=== PATIENT | female | born 1980 ===

== ENCOUNTER 2025-05-18 19:14 | Inpatient (IN) | payer MEDICARE, MEDICAID, SELFPAY ==
--- OUTSIDE RECORDS SUMMARY | 2025-05-17 14:45 | XMS_ITS | Encounter Summary ---
Author Organization [facility] Address [address] [place] [address] Care Team Providers Care Compliance Officer Name Role Phone Anisha Crowell MD Primary Care Provider [phone] Reason for Visit * Reason Comments Vomiting Encounter Details Date Type Department Care Team ([facility] st Contact Info) Description 05/17/2025 2:45 PM EST - 05/17/2025 10:01 PM EST Emergency [facility] Emergency [address] [place] [address] Luis Antonio Jacobo MD [address] [place] [address] Benny Moreau MD [address] [facility] [address] [place], [place] [id number] Nausea and vomiting, unspecified vomiting type (Primary Dx) Discharge Disposition: Home or Self Care Social History Tobacco Use Types Packs/Day Years Used Date Smoking Tobacco: Never Smokeless Tobacco: Never Comments Unknown Sex and Gender Information Value Date Recorded Sex Assigned at Female 05/12/2024 5:13 PM EST Legal Sex Female 8:19 PM EST Gender Identity Female 05/12/2024 5:13 PM EST Sexual Orientation Not on file documented as of this encounter Last Filed Vital Signs Vital Sign Reading Time Taken Comments Blood Pressure 110/74 05/17/2025 7:32 PM EST Pulse 89 05/17/2025 7:32 PM EST Temperature 36.5 C (97.7 F) 05/17/2025 7:32 PM EST Respiratory Rate 16 05/17/2025 7:32 PM EST Oxygen Saturation 97% 05/17/2025 7:32 PM EST Inhaled Oxygen Concentration - - Weight 70.3 kg (155 lb) 05/17/2025 2:10 PM EST Height 167.6 cm (5' 6 ) 05/17/2025 2:10 PM EST Body Mass Index 25.02 05/17/2025 2:10 PM EST documented in this encounter Discharge Instructions * Discharge Instructions* Benny Mroeau MD - 05/17/2025 9:29 PM EST You can take over the counter Acetaminophen (ex: Tylenol) 650 mg every 6 hours as needed for pain. Do not take more than this / Never take more than 4g (4,000mg) of Tylenol in one day; it can cause serious damage to your liver if you take too much. You been prescribed several tablets of Zofran for nausea and vomiting. Follow-up with your primary care provider next 3 to 5 days As we discussed return to the emergency department immediately if your symptoms worsen or not get better, if you experience any worsening uncontrolled pain, recurrent nausea and or vomiting, unable to eat or drink, chest pain, shortness of breath, or for any other reason Even though you have been discharged from the Emergency Department, there are several things that you should do to ensure that you receive proper care: 1. DO READ your discharge instructions as these contain important information concerning your medical care. 2. If medication has been prescribed for your condition, fill the prescription as soon as possible and follow the directions on the medication. 3. RETURN AT ONCE TO THE EMERGENCY DEPARTMENT if you have any problems or concerns. These include but are not limited to fever, worsening pain(belly, chest, head, etc...), worsening shortness of breath, uncontrollable bleeding, inability to tolerate food and water, or any condition that makes you question your well-being. Also, if your symptoms do not improve in the next 12-24 hours, return to the ER or seek medical care immediately. 4. Be sure to follow up with your regular physician or specialist as instructed at discharge as this is the best way to ensure that you receive the very best of care. If you do not have a primary care physician, please contact a physician group and make an appointment. 5. Please visit [employer] for coupons regarding your prescriptions. It is a free service for you to use and can help reduce the cost of your medication. We would like to thank you for coming today and our hope is that we served you and your family wellduring your stay * Attachments The following attachments cannot be sent through Care Everywhere. * Nausea and Vomiting (Cameroonian) documented in this encounter Medications at Time of Discharge acetaminophen (TYLENOL) 500 mg tablet Take 2 tablets (1,000 mg total) by mouth every 6 (six) hours if needed for mild pain or moderate pain. 32 tablet 05/10/2024 ondansetron ODT (ZOFRAN-ODT) 8 mg disintegrating tablet Dissolve 1 tablet (8 mg total) on top of the tongue every 8 (eight) hours if needed for nausea or vomiting. 4 tablet 05/17/2025 documented as of this encounter Ordered Prescriptions Prescription Sig Dispense Quantity Refills Last Filled Start Date End Date ondansetron ODT (ZOFRAN-ODT) 8 mg disintegrating tablet Dissolve 1 tablet (8 mg total) on top of the tongue every 8 (eight) hours if needed for nausea or vomiting. 4 tablet 05/17/2025 documented in this encounter Discharge Disposition Disposition Code Departure Means Destination Comment s Home or Self Care documented in this encounter Progress Notes * Usman Pringle RN - 05/17/2025 2:20 PM EST BG 146. Patient in waiting room screaming and stating I need pain meds , vitals stable in triage. Usman Pringle RN 05/17/25 1421 * Jodi Dowd RN - 05/17/2025 1:54 PM EST C/o vomiting and abd pain since this AM. PER EMS HX OF CVA YEARS AGO * Benny Moreau MD - 05/17/2025 1:46 PM EST HPI Chief Complaint Patient presents with Vomiting HPI Patient is a 44-year-old female presenting with recurrent nausea, nonbloody vomiting and abdominal pain that started today. Abdominal pain was described as very severe and diffuse described as cramping and sharp. Denies fever, chills, chest pain, shortness of breath, diarrhea, blood in stool, dysuria, hematuria, vaginal bleeding or discharge. No recent travel out of the country or hiking. No data recorded Patient History Medical History[1] Surgical History[2] Family History[3] Social History Tobacco Use Smoking status: Never Smokeless tobacco: Never Substance Use Topics Alcohol use: Not on file Drug use: Never Review of Systems Review of Systems Physical Exam ED Triage Vitals 05/17/25 1410 Temp Heart Rate Resp BP -- 79 20 104/73 SpO2 Temp src Heart Rate Source Patient Position 100 % -- -- Sitting BP Location FiO2 (%) Left arm -- Vitals: 05/17/25 1410 05/17/25 1626 05/17/25 1932 BP: 104/73 119/79 110/74 BP Location: Left arm Right arm;Upper Right arm Patient Position: Sitting Lying Sitting Pulse: 79 79 89 Resp: 20 18 16 Temp: 36.5 ??C (97.7 ??F) 36.5 ??C (97.7 ??F) TempSrc: Oral Oral SpO2: 100% 100% 97% Weight: 70.3 kg (155 lb) Height: 1.676 m (66 ) Physical Exam Vitals reviewed Pulse ox interpreted by me: Normal on room air - General: Adult, awake & alert, in acute distress secondary to abdominal pain, actively vomiting in triage - HEENT: grossly NC/AT, PERRLA, EOMI, OP clear without exudates or erythema, dry mucous membranes - Neck: Moving normally. No obvious deformities. No tenderness - Pulm: Good inspiratory effort. CTAB. Normal work of breathing on Room Air - CV: Regular rate, regular rhythm. No murmurs/rubs appreciated. - Chest wall: No chest wall bruising or lesions. - Abd/GI: Soft, ND. Generalized tenderness to palpation, no rebound or guarding. - Back/Flanks: No skin findings. No tenderness. - MSK: Radial and DP pulses 2+ bilaterally. No lower extremity edema. - Neuro: Alert. Grossly oriented. Normal fluent speech. Moves all extremities well. Grossly no acute focal exam findings. - Derm: Warm and dry. No rashes noted. - Psych: Calm, cooperative, appropriate Additional findings:_ ED Course & [facility] ED Course as of 05/17/252137 Sun May 17, 2025 141 [id number] glucose 146 [RT] 1745 CT Abdomen Pelvis w Contrast IMPRESSION: Findings consistent with enterocolitis. Small ascites. [RT] 1942 Patient is reevaluated resting comfortably in gurney no acute distress, abdomen is soft, nontender without rebound or guarding. Patient states abdominal he has resolved. No further vomiting herein the ER. She states that she is feeling much better. [RT] ED Course User Index [RT] Benny Moreau MD Clinical Impressions as of 05/17/252137 Nausea and vomiting, unspecified vomiting type Medical Decision Making EKG sinus rhythm 80 bpm, QTc 491 MS, normal axis, nonspecific T wave inversion in V3, similar EKG when compared to prior, no sign of acute ischemia. Labs reviewed notable for no leukocytosis, no anemia, no significant electrolyte derangements, mildelevation beta hydroxybutyrate, troponin negative, lipase negative, viral swab negative. UA not concerning for infection or blood. beta hcg negative. My preliminary interpretation of chest x-ray no consolidation, effusion, or pneumothorax. I agree with radiology interpretation. I considered a broad differential diagnosis including but not limited to bowel obstruction, bowel perforation, acute appendicitis, cholecystitis, diverticulitis, pyelonephritis, ectopic , ovarian torsion, TOA, severe electrolyte derangement, sepsis all less likely given presentation and workup today. Based on workup and presentation today is my clinical impression that patient is dehydrated with a enterocolitis not requiring antibiotics today. Patient passed a p.o. challenge prior to discharge. Patient was counseled re: their likely diagnosis and workup results today. Anticipatory guidance, supportive care, and return precautions were discussed with the patient who voiced understanding and is comfortable with the plan. Procedures Benny Moreau MD 05/17/251417 Benny Moreau MD 05/17/251949 Benny Moreau MD 05/17/252138 Benny Moreau MD 05/18/25 1124 Benny Moreau MD 05/18/25 1125 [1] Past Medical History: Diagnosis Date Stroke (CMS/HCC V24, CMS/HCC V28) [2] Past Surgical History: Procedure Laterality Date HYSTERECTOMY [3] No family history on file. Benny Moreau MD 05/18/25 1126 documented in this encounter Plan of Treatment Not on file documented as of this encounter Procedures Procedure Name Priority Date/Time Associated Diagnosis Comments URINALYSIS WITH REFLEX MICROSCOPIC AND CULTURE STAT 05/17/2025 7:43 PM EST DARBY URINE CULTURE TUBE STAT 05/17/20 7:43 PM EST DRUG ABUSE SCREEN 8A PANEL, URINE STAT 05/17/2025 7:43 PM EST URINALYSIS WITH REFLEX MICROSCOPIC AND CULTURE STAT 05/17/2025 7:[address] ABDOMEN PELVIS W CONTRAST STAT 05/17/2025 4:57 PM EST ECG 12-LEAD STAT 05/17/2025 4:22 PM EST XR CHEST 1 VIEW STAT 05/17/2025 3:57 PM EST [id number], RSV, FLU A AND B QUALITATIVE RT-PCR, INTERNAL LAB STAT 05/17/2025 3:38 PM EST TROPONIN I HIGH SENSITIVITY STAT 05/17/2025 3:26 PM EST BETA HYDROXYBUTYRATE STAT 05/17/2025 3:26 PM EST CBC WITH AUTO DIFFERENTIAL STAT 05/17/2025 3:26 PM EST ACTIVATED PARTIAL THROMBOPLASTIN TIME STAT 05/17/2025 3:26 PM EST PROTHROMBIN TIME WITH INR STAT 05/17/2025 3:26 PM EST CBC AND DIFFERENTIAL STAT 05/17/2025 3:26 PM EST HCG, SERUM, QUALITATIVE STAT 05/17/20 3:26 PM EST MAGNESIUM STAT 05/17/2025 3:26 PM EST LIPASE STAT 05/17/2025 3:26 PM EST COMPREHENSIVE METABOLIC PANEL STAT 05/17/2025 3:26 PM EST POCT GLUCOSE BLOOD Routine 05/17/2025 2: 18 PM EST documented in this encounter Results * (ABNORMAL) Drug abuse screen 8a panel, urine (05/17/2025 7:43 PM EST) Amphetamine Screen, Ur Negative Negative 05/17/2025 8:37 PM EST [facility] Comment:Certain OTC medicati ons containing ephedrine, phenylephrine, pseudoephedrine and phenylpropanolamine can cause false positive results. Barbiturate Screen, Ur Negative Negative 05/17/2025 8:37 PM [facility] Benzodiazepine Screen, Ur Negative Negative 05/17/2025 8:37 PM [facility] Cocaine Screen, Ur Negative Negative 2024 8:37 PM [facility] Opiate Screen, Ur Positive(A ) Negative 05/17/2025 8:37 PM [facility] Cannabinoid (THC) Screen, Ur Negative Negative 05/17/2025 8:37 PM [facility] Comment:Specimens from patie nts taking pantoprazole sodium (Protonix) have been shown to produce false positive results. Oxycodone Screen, Ur Negative Negative 12/2024 8:37 PM EST [facility] Fentanyl, Ur Negative Negative 05/17/2025 8:37 PM EST [facility] Urine Urine specimen obtained by clean catch procedure / Unknown Non-blood Collection / Unknown 05/17/2025 7:43 PM EST 05/17/2025 8:08 PM EST Narrative [facility] - 05/17/2025 8:37 PM EST Assay cutoffs: Amphetamines 1000 ng/mL Barbiturates 200 ng/mL Benzodiazepines 200 ng/mL Cocaine 300 ng/mL Fentanyl 1 ng/mL Opiates 300 ng/mL Oxycodone 100 ng/mL THC 50 ng/mL Semi-quantitative assay for screening purposes only. Unconfirmed screening result should not be used for non-medical purposes. *ALTERNATE METHOD CONFIRMATION DONE UPON REQUEST ONLY* us Benny Moreau MD LAB URINE ORDERABLES Final Resul t Performing Organization Address City/[facility]/ZIP Co de Phone Number [facility] [address] [place] [address], [place] [phone] * Darby urine culture tube (05/17/2025 7:43 PM EST) Pathologist [facility] Extra Tube Hold for add-ons. 05/17/2025 10:04 PM EST [facility] Comment:Auto resulted. Urine Urine specimen obtained by clean catch procedure / Unknown Non-blood Collection / Unknown 05/17/2025 7:43 PM EST 05/17/2025 8:08 PM EST us Benny Moreau MD LAB URINE ORDERABLES Final Resul t Performing Organization Address [facility]/ZIP Co de Phone Number [facility] [address] [place] [address], [place] [phone] * (ABNORMAL) Urinalysis with reflex microscopic and culture (05/17/2025 7:43 PM EST) Specific [place] Urine >1.045(H) 1.003 - 1.030 LAB URINALYSIS - AUTOMATED METHOD 05/17/2025 9:06 PM [facility] pH, Urine 7.5 5.0 - 8.0 pH LAB URINALYSIS - AUTOMATED METHOD 05/17/2025 9:06 PM [facility] Leukocytes, Urine Negative Negative LAB URINALYSIS - AUTOMATED METHOD 05/17/2025 9:06 PM [facility] Nitrite, Urine Negative Negative LAB URINALYSIS - AUTOMATED METHOD 05/17/2025 9:06 PM [facility] Protein, Urine Trace <=Trace mg/dL LAB URINALYSIS - AUTOMATED METHOD 05/17/2025 9:06 PM [facility] Glucose, Urine Negative Negative mg/dL LAB URINALYSIS - AUTOMATED METHOD 05/17/2025 9:06 PM [facility] Ketones, Urine Negative Negative mg/dL LAB URINALYSIS - AUTOMATED METHOD 05/17/2025 9:06 PM [facility] Urobilinogen , Urine 0.2 0.2 - 1.0 mg/dL LAB URINALYSIS - AUTOMATED METHOD 05/17/2025 9:06 PM [facility] Bilirubin, Urine Negative Negative LAB URINALYSIS - AUTOMATED METHOD 05/17/2025 9:06 PM [facility] Blood, Urine Negative Negative LAB URINALYSIS - AUTOMATED METHOD 05/17/2025 9:06 PM [facility] Urine Urine specimen obtained by clean catch procedure / Unknown Non-blood Collection / Unknown 05/17/2025 7:43 PM EST 05/17/2025 8:08 PM EST us Benny Moreau MD LAB URINE ORDERABLES Final Resul t [facility] [address] [place] [address], * CT Abdomen Pelvis w Contrast (05/17/2025 4:57 PM EST) Anatomical Region Laterality Modality Body Computed Tomogra phy 05/17/2025 5:28 PM EST Impressions 05/17/2025 5:28 PM EST Findings consistent with enterocolitis. Small ascites. This document has been electronically signed by: Aiden Bashir MD on 05/17/2025 17:28:14 Narrative 05/17/2025 5:28 PM EST INDICATION: abd pain CT Abdomen and Pelvis W Contrast COMPARISON: None provided FINDINGS: Normal liver. Normal spleen. Normal kidneys. Normal adrenal glands. Normal pancreas. No visible cholelithiasis. No biliary dilation. No evidence of bowel obstruction. Mild thickening of the meyer of the descending and sigmoid colon. Fluid-filled small bowel loops with mild adjacent fat stranding in the lower abdomen. Mild thickening of the meyer of several small bowel loops. No pneumatosis. Normal-appearing appendix. Unremarkable bladder. Status post hysterectomy. Small ascites. No pneumoperitoneum. No lymphadenopathy. No acute fracture. No abdominal aortic aneurysm. Procedure Note Aiden Bashir MD - 05/17/2025 INDICATION: abd pain CT Abdomen and Pelvis W Contrast COMPARISON: None provided FINDINGS: Normal liver. Normal spleen. Normal kidneys. Normal adrenal glands. Normal pancreas. No visible cholelithiasis. No biliary dilation. No evidence of bowel obstruction. Mild thickening of the meyer of the descending and sigmoid colon. Fluid-filled small bowel loops with mild adjacent fat stranding in the lower abdomen. Mild thickening of thewalls of several small bowel loops. No pneumatosis. Normal-appearing appendix. Unremarkable bladder. Status post hysterectomy. Small ascites. No pneumoperitoneum. No lymphadenopathy. No acute fracture. No abdominal aortic aneurysm. IMPRESSION: Findings consistent with enterocolitis. Small ascites. This document has been electronically signed by: Aiden Bashir MD on 05/17/2025 17:28:14 Benny Moreau MD IM CT PROCEDURES Final Result * 12-Lead ECG (05/17/2025 4:22 PM EST) Ventricular Rate ECG 80 BPM GEMUSE Atrial Rate 80 BPM GEMUSE P-R Interval 168 ms GEMUSE QRS Duration 78 ms GEMUSE Q-T Interval 426 ms GEMUSE QTc 491 ms GEMUSE P Wave Applegate 84 degrees GEMUSE R Applegate 51 degrees GEMUSE T Applegate 55 degrees GEMUSE ECG Interpretation Normal sinus rhythm Nonspecific T wave abnormality Prolonged QT Abnormal ECG When compared with ECG of 26-NOV-2017 14:39, No significant change was found Confirmed by Guanaco ALFARO YUFENG ([id number]) on 05/17/2025 5:59:00 PM GEMUSE 05/17/2025 4:22 PM EST 05/17/2025 5:59 PM EST Benny Moreau MD ECG ORDERABLES Final Result GEMUSE * XR Chest 1 View (05/17/2025 3:57 PM EST) Anatomical Region Laterality Modality Body Radiographic Jennifer ging 05/17/2025 4:17 PM EST Impressions 05/17/2025 4:18 PM EST FINDINGS/IMPRESSION: Lungs are clear. No pleural effusion or pneumothorax. Cardiac silhouette and bones are normal. -------- FINAL REPORT -------- Dictated By: RAJAN WITT Dictated Date: 05/17/2025 16:17 ET Assigned Physician: RAJAN WITT Reviewed and Electronically Signed By: RAJAN WITT Signed Date: 05/17/2025 16:18 ET Workstation ID: [id number] Transcribed By: Self Edit Transcribed Date: 05/17/2025 16:17 ET Narrative 05/17/2025 4:18 PM EST XR CHEST 1 VIEW INDICATION: Nausea/vomiting TECHNIQUE: XR CHEST 1 VIEW COMPARISON: No priors available. Procedure Note Rajan Witt MD - 05/17/2025 XR CHEST 1 VIEW INDICATION: Nausea/vomiting TECHNIQUE: XR CHEST 1 VIEW COMPARISON: No priors available. IMPRESSION: FINDINGS/IMPRESSION: Lungs are clear. No pleural effusion orpneumothorax. Cardiac silhouette and bones are normal. -------- FINAL REPORT -------- Dictated By: RAJAN WITT Dictated Date: 05/17/2025 16:17 ET Assigned Physician: RAJAN WITT Reviewed and Electronically Signed By: RAJAN WITT Signed Date: 05/17/2025 16:18 ET Workstation ID: [id number] Transcribed By: Self Edit Transcribed Date: 05/17/2025 16:17 ET us Benny Moreau MD IMG XR PROCEDURES Final Result * [id number], RSV, Influenza A and B qualitative RT-PCR (05/17/2025 3:38 PM EST) Pathologist [facility] Influenza A PCR Not Detected Not Detected LAB MICROBIOLOGY METHOD 05/17/2025 4:28 PM EST [facility] Influenza B PCR Not Detected Not Detected LAB MICROBIOLOGY METHOD 05/17/2025 4:28 PM EST [facility] RSV PCR Not Detected Not Detected LAB MICROBIOLOGY METHOD 05/17/2025 4:28 PM EST [facility] SARS COV-2 Not Detected Not Detected LAB MICROBIOLOGY METHOD 05/17/2025 4:28 PM EST [facility] Swab Nasopharyngeal structure / Unknown Non-blood Collection / Unknown 05/17/2025 3:38 PM EST 05/17/2025 3:41 PM EST us Benny Moreau MD LAB MICROBIOLOGY - GENERAL ORDER MAYRA Final Result [facility] [address] [place] [address], * (ABNORMAL) Beta hydroxybutyrate (05/17/2025 3:26 PM EST) Pathologist [facility] Beta-Hydroxybu tyrate 4.2(H) 0.2 - 2.8 mg/dL 05/17/2025 5:07 PM EST [facility] Blood Venous blood specimen / Unknown Venipuncture / Unknown 05/17/2025 3:26 PM EST 05/17/2025 3:41 PM EST us Benny Moreau MD LAB BLOOD ORDERABLES Final Resul t [facility] [address] [place] [address], [place] [phone] * (ABNORMAL) CBC auto differential (05/17/2025 3:26 PM EST) WBC 7.7 4.8 - 10.8 K/mcL LAB HEMETOLOGY METHOD 05/17/2025 3:51 PM EST [facility] RBC 4.10 3.80 - 4.80 M/mcL LAB HEMETOLOGY METHOD 05/17/2025 3:51 PM [facility] Hemoglobin 12.7 11.5 - 16.0 g/dL LAB HEMETOLOGY METHOD 05/17/2025 3:51 PM EST [facility] Hematocrit 37.8 35.0 - 47.0 % LAB HEMETOLOGY METHOD 05/17/2025 3:51 PM [facility] MCV 91.7 79.0 - 98.0 FL LAB HEMETOLOGY METHOD 05/17/2025 3:51 PM [facility] MCH 30.8 27.0 - 32.0 pcg LAB HEMETOLOGY METHOD 05/17/2025 3:51 PM [facility] MCHC 33.6 32.0 - 37.0 g/dL LAB HEMETOLOGY METHOD 05/17/2025 3:51 PM [facility] RDW 11.8 11.0 - 15.0 % LAB HEMETOLOGY METHOD 05/17/2025 3:51 PM [facility] Platelets 251 130 - 400 K/mcL LAB HEMETOLOGY METHOD 05/17/2025 3:51 PM [facility] MPV 11.7(H) 7.0 - 11.0 FL LAB HEMETOLOGY METHOD 05/17/2025 3:51 PM [facility] NRBC 0.0 <1.0 % LAB HEMETOLOGY METHOD 05/17/2025 3:51 PM [facility] NRBC Absolute 0.00 <0.10 K/mcL LAB HEMETOLOGY METHOD 05/17/2025 3:51 PM [facility] Neutrophils Relative 79.5 % LAB HEMETOLOGY METHOD 05/17/2025 3:51 PM [facility] Lymphocytes Relative 17.4 % LAB HEMETOLOGY METHOD 05/17/2025 3:51 PM [facility] Monocytes Relative 2.6 % LAB HEMETOLOGY METHOD 05/17/2025 3:51 PM [facility] Eosinophils Relative 0.1 % LAB HEMETOLOGY METHOD 05/17/2025 3:51 PM [facility] Basophils Relative 0.1 % LAB HEMETOLOGY METHOD 05/17/2025 3:51 PM [facility] Immature Granulocytes Relative 0.3 % LAB HEMETOLOGY METHOD 05/17/2025 3:51 PM [facility] Neutrophils Absolute 6.14 1.50 - 7.00 K/mcL LAB HEMETOLOGY METHOD 05/17/2025 3:51 PM [facility] Lymphocytes Absolute 1.34 1.00 - 5.00 K/mcL LAB HEMETOLOGY METHOD 05/17/2025 3:51 PM [facility] Monocytes Absolute 0.20 0.20 - 1.00 K/mcL LAB HEMETOLOGY METHOD 05/17/2025 3:51 PM [facility] Eosinophils Absolute 0.01 0.00 - 0.50 K/mcL LAB HEMETOLOGY METHOD 05/17/2025 3:51 PM [facility] Basophils Absolute 0.01 0.00 - 0.20 K/mcL LAB HEMETOLOGY METHOD 05/17/2025 3:51 PM EST [facility] Immature Granulocytes Absolute 0.02 0.00 - 0.03 K/[facility] LAB HEMETOLOGY METHOD 05/17/2025 3:51 PM EST [facility] Blood Venous blood specimen / Unknown Venipuncture / Unknown 05/17/2025 3:26 PM EST 05/17/2025 3:41 PM EST Benny Moreau MD LAB BLOOD ORDERABLES Final Resul t [facility] [address] [place] [address], [place] [phone] * (ABNORMAL) APTT (05/17/2025 3:26 PM EST) aPTT 23.1(L) 24.1 - 39.3 sec LAB COAGULATION METHOD 05/17/2025 4:17 PM EST [facility] Blood Venous blood specimen / Unknown Venipuncture / Unknown 05/17/2025 3:26 PM EST 05/17/2025 3:41 PM EST Benny Moreau MD LAB BLOOD ORDERABLES Final Resul t Performing Organization Address [facility]/State/ZIP Co de Phone Number [facility] [address] [place] [address], [place] [phone] * Protime-INR (05/17/2025 3:26 PM EST) Protime 11.6 10.6 - 13.9 sec LAB COAGULATION METHOD 05/17/2025 4:17 PM EST [facility] INR 0.9 LAB COAGULATION METHOD 05/17/2025 4:17 PM EST [facility] Blood Venous blood specimen / Unknown Venipuncture / Unknown 05/17/2025 3:26 PM EST 05/17/2025 3:41 PM EST us Benny Moreau MD LAB BLOOD ORDERABLES Final Resul t Performing Organization Address City/[facility]/ZIP Co de Phone Number [facility] [address] [place] [address], [place] [phone] * Troponin I High Sensitivity (05/17/2025 3:26 PM EST) [facility] High Sensitivity Troponin I <3 <=34 ng/L 05/17/2025 4:12 PM EST [facility] Blood Venous blood specimen / Unknown Venipuncture / Unknown 05/17/2025 3:26 PM EST 05/17/2025 3:41 PM EST us Benny Moreau MD LAB BLOOD ORDERABLES Final Resul t Performing Organization Address [facility] Co de Phone Number [facility] [address] [place] [address], [place] [phone] * hCG Qualitative (05/17/2025 3:26 PM EST) [facility] hCG Qual Negative Negative 05/17/2025 3:59 PM EST [facility] Blood Venous blood specimen / Unknown Venipuncture / Unknown 05/17/2025 3:26 PM EST 05/17/2025 3:41 PM EST us Benny Moreau MD LAB BLOOD ORDERABLES Final Resul t Performing Organization Address City/[facility]/ZIP Co de Phone Number [facility] [address] [place] [address], [place] [phone] * Lipase (05/17/2025 3:26 PM EST) [facility] Lipase 25 12 - 53 unit/L 05/17/2025 4:13 PM EST [facility] Blood Venous blood specimen / Unknown Venipuncture / Unknown 05/17/2025 3:26 PM EST 05/17/2025 3:41 PM EST us Benny Moreau MD LAB BLOOD ORDERABLES Final Resul t Performing Organization Address City/[facility]/ZIP Co de Phone Number [facility] [address] [place] [address], [place] [phone] * Magnesium (05/17/2025 3:26 PM EST) Pathologist [facility] Magnesium 1.9 1.9 - 2.6 mg/dL 05/17/2025 4:13 PM [facility] Blood Venous blood specimen / Unknown Venipuncture / Unknown 05/17/2025 3:26 PM EST 05/17/2025 3:41 PM EST us Benny Moreau MD LAB BLOOD ORDERABLES Final Resul t Performing Organization Address [facility]/ZIP Co de Phone Number [facility] [address] [place] [address], [place] [phone] * (ABNORMAL) Comprehensive Metabolic Panel (CMP) (05/17/2025 3:26 PM EST) [facility] Sodium 137 133 - 145 mmol/L 05/17/2025 4:13 PM [facility] Potassium 4.0 3.5 - 5.5 mmol/L 05/17/2025 4:13 PM [facility] Chloride 104 96 - 110 mmol/L 05/17/2025 4:13 PM [facility] CO2 22 21 - 32 mmol/L 05/17/2025 4:13 PM [facility] Anion Gap 11 3 - 11 05/17/2025 4:13 PM [facility] Glucose 150(H) 70 - 100 mg/dL 05/17/2025 4:13 PM [facility] BUN 12 5 - 25 mg/dL 05/17/2025 4:13 PM [facility] Creatinine 0.67 0.50 - 1.10 mg/dL 05/17/2025 4:13 PM [facility] eGFR 112 >=60 mL/min/1. 73m2 05/17/2025 4:13 PM [facility] Comment:Calculation based on the Chronic Kidney Disease Epidemiology Collaboration (CKD-EPI) equation refit without adjustment for race. BUN/Creatinine Ratio 17.9 05/17/2025 4:13 PM [facility] Calcium 9.5 8.5 - 10.5 mg/dL 05/17/2025 4:13 PM [facility] AST (SGOT) 18 10 - 42 unit/L 05/17/2025 4:13 PM [facility] ALT (SGPT) 15 10 - 60 unit/L 05/17/2025 4:13 PM [facility] Alkaline Phosphatase 58 42 - 121 unit/L 05/17/2025 4:13 PM [facility] Total Protein 6.8 6.0 - 8.0 g/dL 05/17/2025 4:13 PM [facility] Albumin 4.4 3.2 - 5.0 g/dL 05/17/2025 4:13 PM [facility] Total Bilirubin 0.5 0.0 - 1.4 mg/dL 05/17/2025 4:13 PM [facility] Blood Venous blood specimen / Unknown Venipuncture / Unknown 05/17/2025 3:26 PM EST 05/17/2025 3:41 PM EST us Benny Moreau MD LAB BLOOD ORDERABLES Final Resul t [facility] [address] [place] [address], * (ABNORMAL) POCT Glucose, blood (05/17/2025 2:18 PM EST) Glucose POCT 146(H) 70 - 100 mg/dL 05/17/2025 2:19 PM EST [facility] Blood Capillary blood specimen / Unknown 05/17/2025 2:18 PM EST 05/17/2025 2:20 PM EST us Benny Moreau MD LAB POINT OF CARE TE ST DOCKED DEVICE UNSOLICITED RESULTS Final Result [facility] ([facility]) [facility] [address] [place] [address], [place] [phone] documented in this encounter Visit Diagnoses Diagnosis Nausea and vomiting, unspecified vomiting type- Primary documented in this encounter Administered Medications Inactive Administered Medications - up to 3 most recent administrations Medication Order MAR Action Action Date Dose Rate Site famotidine (PF) (PEPCID) injection 20 mg 20 mg, intravenous, Administer over 2 Minutes, Once, On 05/17/25 at 1416, For 1 dose Given 05/17/2025 3:13 PM EST 20 mg ibuprofen (ADVIL,MOTRIN) tablet 600 mg 600 mg, oral, Once, On 05/17/25 at 2041, For 1 dose, Administer with food or milk to decrease GI upset Given 05/17/2025 9:39 PM EST 600 mg iopamidoL (ISOVUE-370) 370 mg iodine /mL (76 %) injection 90 mL 90 mL, intravenous, Once in imaging, Starting on 05/17/25 at 1652, For 1 dose Given 05/17/2025 4:52 PM EST 90 mL lactated Ringer's bolus 1,000 mL 1,000 mL, intravenous, at 1,000 mL/hr, Administer over 1 Hours, Once, On 05/17/25 at 1416, For 1 dose New Bag 05/17/2025 3:13 PM EST 1,000 mL 100 0 mL/hr morphine injection 4 mg 4 mg, intravenous, Once, On 05/17/25 at 1430, For 1 dose Given 05/17/2025 3:13 PM EST 4 mg morphine injection 4 mg 4 mg, intravenous, Once, On 05/17/25 at 1629, For 1 dose Given 05/17/2025 4:41 PM EST 4 mg ondansetron (PF) (ZOFRAN) injection 4 mg 4 mg, intravenous, Once, On 05/17/25 at 1416, For 1 dose Given 05/17/2025 3:13 PM EST 4 mg sodium chloride 0.9 % flush 10 mL 10 mL, intravenous, Once, On 05/17/25 at 1653, For 1 dose Given 05/17/2025 4:52 PM EST 10 mL documented in this encounter Active and Recently Administered Medications Times are shown in EST. Scheduled Medication Order 05/15/2025 05/16/2025 05/17/2025 famotidine (PF) (PEPCID) injection 20 mg (COMPLETED) 20 mg, intravenous, Administer over 2 Minutes, Once, On 05/17/25 at 1416, For 1 dose 151 (Given - Provid er: Rosie Escobar RN) ibuprofen (ADVIL,MOTRIN) tablet 600 mg (COMPLETED) 600 mg, oral, Once, On 05/17/25 at 2041, For 1 dose, Administer with food or milk to decrease GI upset 2138 (Given - Provid er: Goldie Hong RN) iopamidoL (ISOVUE-370) 370 mg iodine /mL (76 %) injection 90 mL (COMPLETED) 90 mL, intravenous, Once in imaging, Starting on 05/17/25 at 1652, For 1 dose 1651 (Given - Provid er: Rachael Watkins) lactated Ringer's bolus 1,000 mL (COMPLETED) 1,000 mL, intravenous, at 1,000 mL/hr, Administer over 1 Hours, Once, On 05/17/25 at 1416, For 1 dose 151 (New Bag - Prov ider: Rosie Escobar RN)1651 (Stopped - Provider: Rosie Escobar RN) morphine injection 4 mg (COMPLETED) 4 mg, intravenous, Once, On 05/17/25 at 1430, For 1 dose 151 (Given - Provid er: Rosie Escobar RN) morphine injection 4 mg (COMPLETED) 4 mg, intravenous, Once, On 05/17/25 at 1629, For 1 dose 1641 (Given - Provid er: Rosie Escobar RN) ondansetron (PF) (ZOFRAN) injection 4 mg (COMPLETED) 4 mg, intravenous, Once, On 05/17/25 at 1416, For 1 dose 1513 (Given - Provid er: Rosie Escobar RN) sodium chloride 0.9 % flush 10 mL (COMPLETED) 10 mL, intravenous, Once, On 05/17/25 at 1653, For 1 dose 1652 (Given - Provid er: Rachael Watkins) documented in this encounter Additional Health Concerns Infection Onset Date Last Indicated Resolved Time Respiratory Rule-Out 05/17/2025 05/17/2025 025 4:28 PM EST COVID-19 Rule-Out 05/17/2025 05/17/2025 05/17/2025 4:28 PM EST documented as of this encounter Care Teams Compliance Officer Relationship Specialty Start Date End Date Anisha Crowell MD [address] [address] PCP - General Internal Medicine 03/01/25 documented as of this encounter
--- NOTE | ~2025-05-18 | CT_ITS ---
CLINICAL HISTORY: RLQ Tenderness; Pos Rebound; Pos Rovsings CT abdomen and pelvis with contrast Comparison: None provided Findings: Minimal atelectasis at the lung bases. Dependent density in the gallbladder is likely vicarious excretion from previous administration. No gallbladder wall thickening or bile duct dilatation. Abdominal solid organs unremarkable. No urolithiasis. Small amount of abdominopelvic ascites. No pneumoperitoneum. Mesenteric vessels are patent. The mid appendix is slightly thick-walled and up to 7 mm in diameter. The proximal and distal appendix appear unremarkable. Uterus absent. Ovaries within normal limits. No acute fracture. IMPRESSION: Although the majority of the appendix appears normal, the midportion is thick-walled in large diameter up to 7 mm. Combined with a small amount of ascites ( more than expected for physiologic), the possibility of early acute appendicitis should be considered. This document has been electronically signed by: Luz Blanco MD on 05/18/2025 21:58:27
[2025-05-18 19:15] VITALS: BP 127/79; PULSE 88; RESP 20; TEMP 36.6; O2SAT 98; BMI 23.5
--- NOTE | 2025-05-18 19:20 | ED_ITS ---
HPI - General Adult General Chief complaint: Abdominal Pain Stated complaint: Abdominal pain Time Seen by Provider: 05/18/25 20:04 Source: patient and family Mode of arrival: ambulatory Limitations: no limitations History of Present Illness ED Provider: Darvin LEWIS HPI narrative: The patient is a 44-year old female who presents with 2 days of abdominal pain and recurrent vomiting. Symptoms began yesterday at which time she was evaluated at [facility], where a CT abdomen/pelvis with IV contrast reportedly showed no acute surgical pathology. She was diagnosed with presumed viral gastroenteritis and discharged home with Zofran. She took Zofran at approximately 1300 today, which initially controlled her vomiting; however, emesis recurred this evening. She reports diarrhea yesterday morning that has resolved and denies hematemesis, hematochezia, or melena. Pain is described as a shooting/stabbing sensation localized to the periumbilical region without radiation to the chest or back. She denies fevers. She reports that her abdominal pain worsened with bumps while driving to the hospital. Past surgical history is notable for hysterectomy; she denies any other abdominal surgeries. Related Data Home Medications ?Medication ?Instructions ?Recorded ?Confirmed aspirin 81 mg tablet 81 mg PO DAILY 05/19/2503/05 fluticasone propionate 50 1 spray intranasal DAILY PRN Nasal 05/19/25 05/19/25 mcg/actuation nasal Congestion spray,suspension multivitamin 1 tab PO DAILY 05/19/2503/05 ondansetron 8 mg disintegrating 8 mg PO Q6H PRN Nausea And Vomiting 05/19/25 05/19/25 tablet propranolol 120 mg capsule,24 240 mg PO BEDTIME 05/19/25 hr,extended release rizatriptan 5 mg tablet 5 mg PO DAILY PRN Migraine H eadache 05/19/25 05/19/25 valacyclovir 500 mg tablet 500 mg PO DAILY 05/19/25 Previous Rx's ?Medication ?Instructions ?Recorded docusate sodium 100 mg capsule 100 mg PO BID PRN const ipation #30 05/19/25 (Colace) caps oxycodone 5 mg tablet 5 mg PO Q4H PRN pain (scale score 05/19/25 7-10) #26 tabs Allergies Allergy/AdvReac Type Severity Reaction Status Date / Time No Known Allergies Allergy Verified 05/18/25 19:18 Review of Systems 2 Review of Systems: Yes all other systems are reviewed and are negative PMFSH Past Medical History Medical History Stress-induced epilepsy Migraines CVA (cerebral vascular accident) Surgical History H/O: hysterectomy Social History Social History Household Members: Children Housing: House Do you presently have visiting nurse or other home services: No Patient Tobacco Use Status: Never used Tobacco Second Hand Smoke Exposure: No service: No Physical Exam ED Vital Signs: Vital Signs - 24 hr 05/18/25 19:15 05/18/25 19:46 05/18/25 22:05 Temperature 97.8 F 98.8 F Pulse Rate 88 62 86 Respiratory Rate 20 14 16 Blood Pressure 127/79 113/68 93/56 L Pulse Oximetry 98 99 99 Oxygen Delivery Method Room Air Room Air Room Air BMI result Body Mass Index 23.5 CONSTITUTIONAL: The patient appears uncomfortable but otherwise non-toxic, well nourished and in no acute distress. Vital signs as documented. HEAD: Atraumatic, normocephalic. EYES: EOMs grossly intact, pupils equal, conjunctiva clear, no exudate. ENT: Nares patent, no discharge. Airway patent, no audible stridor, visible mucosa is pink and moist without noted lesions. NECK: Trachea is midline, no obvious masses or gross abnormalities. CHEST: Symmetric movement, normal appearance. LUNGS: LS present and CTAB, no w/r/r. Non-labored work of breathing. CARDIAC: Regular Rhythm, S1/S2 appreciated, no murmurs, rubs or gallops. ABDOMEN: Abdomen soft x4 quadrants, tenderness to palpation of the right lower quadrant, positive rebound, positive Rovsing's, no palpable masses or organomegaly. : Deferred. EXTREMITIES: Normal tone, moves all extremities spontaneously without reported pain. No obvious acute injury or deformity noted. NEURO: Alert and oriented x3, CN II-XII appear grossly intact. Cerebellar Functioning grossly intact. No obvious sensory or motor deficits. Speech clear and appropriate. PSYCH: normal affect, appropriate eye contact, fluid speech, with appropriate response to questioning. No reported suicidality or homicidality. SKIN: Warm, dry, color appropriate, normal turgor. No rashes noted. Course Course Course Narrative: RME: 44-year-old female presents to the ED for abdomial pain and than having siezure. patient has umbilical lower abdominal pain. Patient has seizures are brought on by stress. Patient is not on any seizure medication. Labs ordered. Patient is brought to bed 6 Medications Administered Discontinued Medications Generic Name Dose Route Start Last Admin Trade Name Freq PRN Reason Stop Dose Admin Diphenhydramine HCl 25 mg 05/18/25 20:14 05/18/25 21:01 Diphenhydramine Hcl 50 Mg/Ml Vial IVPUSH 05/18/25 20:15 25 mg ONCE ONE Administration Docusate Sodium 100 mg 05/19/25 21:00 05/20/25 08:19 Docusate Sodium 100 Mg Capsule PO 100 mg BID DAVID Administration Hydromorphone HCl 0.5 mg 05/18/25 22:37 05/19/25 13:36 Hydromorphone Hcl 0.5 Mg/0.5 Ml Syringe IVPUSH 0.5 mg Q3H PRN Administration Pain, Severe (Pain Scale 7-10) Protocol Sodium Chloride 1,000 mls @ 999 mls/hr 05/18/25 20:30 05/18/25 22:02 Ns IV 05/18/25 21:30 Infused .Q1H1M DAVID Infusion Ceftriaxone Sodium 1 gm/ 50 mls @ 100 mls/hr 05/18/25 22:16 05/18/25 23:08 Sodium Chloride IV 05/18/25 22:45 Infused ONCE ONE Infusion Sodium Chloride 1,000 mls @ 999 mls/hr 05/18/25 22:30 05/18/25 23:45 Ns IV 05/18/25 23:30 Infused .Q1H1M DAVID Infusion Acetaminophen 1,000 mg in 100 mls @ 400 mls/hr 05/18/25 22:37 05/19/25 15:38 Ofirmev IV Infused Q6H PRN Infusion Pain, Mild (Pain Scale 1-3) Dextrose/Lactated Ringer's 1,000 mls @ 125 mls/hr 05/18/25 22:45 05/20/25 08:46 D5lr IVCONT Infused .Q8H DAVID Infusion Metronidazole 500 mg in 100 mls @ 100 mls/hr 05/18/25 23:00 05/19/25 16:14 Flagyl IV Not Given Q8H DAVID Ceftriaxone Sodium 1 gm/ 50 mls @ 100 mls/hr 05/19/25 10:00 05/19/25 11:30 Sodium Chloride IV Infused Q12H DAVID Infusion Influenza Virus Vaccine 0.5 ml 05/20/25 10:00 05/20/25 08:19 Flu Vacc [id number](6mo Up)/Pf 0.5 Ml Syringe IM 05/20/25 10:01 0.5 ml .ONCE ONE Administration Iohexol 85 ml 05/18/25 21:15 05/18/25 21:18 Iohexol 350 Mg/Ml 100 Ml Infus..Btl IV 05/18/25 21:16 85 ml ONCE ONE Administration Melatonin 6 mg 05/18/25 22:37 05/19/25 21:13 Melatonin 3 Mg Tablet PO 6 mg BEDTIME PRN Administration Insomnia Metoclopramide HCl 10 mg 05/18/25 20:14 05/18/25 21:01 Metoclopramide Hcl 10 Mg/2 Ml Vial IVPUSH 05/18/25 20:15 10 mg ONCE ONE Administration Morphine Sulfate 4 mg 05/18/25 20:14 05/18/25 21:02 Morphine Sulfate 4 Mg/Ml Cartridge IVPUSH 05/18/25 20:15 4 mg ONCE ONE Administration Protocol Ondansetron HCl 4 mg 05/18/25 22:37 05/19/25 19:04 Ondansetron Hcl 4 Mg/2 Ml Vial IVPUSH 4 mg QID PRN Administration Nausea Propranolol HCl 240 mg 05/19/25 21:00 05/19/25 21:13 Propranolol Hcl La 80 Mg Cap.Sa.24h PO 240 mg BEDTIME DAVID Administration Protocol Sodium Chloride 3 ml 05/19/25 00:00 05/20/25 08:46 0.9 % Sodium Chloride Flush 3 Ml Syringe IVFLUSH Not Given QSHIFT [facility] Valacyclovir HCl 500 mg 05/20/25 09:00 05/20/25 08:46 Valacyclovir Hcl 500 Mg Tablet PO Not Given DAILY [facility] Medical Decision Making Medical Decision Making MDM Narrative: 8:39 PM 05/18/2025 (Tim LEWIS): The patient is a 44-year old female who presents with 2 days of abdominal pain and recurrent vomiting. Symptoms began yesterday at which time she was evaluated at [facility], where a CT abdomen/pelvis with IV contrast reportedly showed no acute surgical pathology. She was diagnosed with presumed viral gastroenteritis and discharged home with Zofran. She took Zofran at approximately 1300 today, which initially controlled her vomiting; however, emesis recurred this evening. She reports diarrhea yesterday morning that has resolved and denies hematemesis, hematochezia, or melena. Pain is described as a shooting/stabbing sensation localized to the periumbilical region without radiation to the chest or back. She denies fevers. She reports that her abdominal pain worsened with bumps while driving to the hospital. Past surgical history is notable for hysterectomy; she denies any other abdominal surgeries. On exam the patient shows evidence of discomfort without acute distress, abdominal exam reveals right lower quadrant tenderness with positive rebound and positive Rovsing's, otherwise unremarkable. The patient is not actively vomiting in the ED. Triage note reports family noted patient was suffering from seizure-like activity, reportedly has nonepileptic seizures with stress, no seizure activity witnessed during interview or exam. Patient is alert and oriented, no evidence of postictal., no urinary incontinence or tongue biting. Patient's laboratory evaluation demonstrates no leukocytosis, significant anemia, electrolyte abnormality, or KELLI. The patient's LFTs are unremarkable, lipase is negative, urine hCG negative, urinalysis negative for infection. Differential includes appendicitis, SBO, perforated viscus, gastroenteritis. Due to the patient's presentation with positive Rovsing's, rebound, and right lower quadrant tenderness with associated peritoneal signs while driving to the hospital, and vomiting, despite recent workup at [facility], we will obtain repeat CT imaging to evaluate for developing appendicitis. Patient will be treated with IV fluid hydration, morphine, and Reglan with Benadryl for nausea control. Records from [facility] (labs and imaging) have been requested for comparison. 10:16 PM 05/18/2025 (Tim LEWIS): The patient's CT has resulted and shows likely early acute appendicitis with significant inflammation of the midportion of the appendix and periappendiceal fluid without free air or other evidence of perforation. Patient will be treated with Rocephin and Flagyl, and we will contact Surgical team for admission. Admission/Observation Consideration of admission/observation: Escalation of care including admission/observation considered Lab Data MDM Lab Attestation statement: I reviewed the patient's lab results. 05/18/25 19:34 05/18/25 19:34 Labs: Lab Results 05/18/25 05/18/25 05/18/25 Range/Units 19:31 19:34 22:29 WBC 7.1 (4.8-10.8) X10*3/uL RBC 3.99 L (4.20-5.50) X10*6/uL Hgb 12.5 (12.0-16.0) g/dl Hct 37.0 (37.0-47.0) % MCV 92.7 (80.0-98.0) fL MCH 31.3 (27.0-33.0) pg MCHC 33.8 (31.0-35.0) g/dl RDW 12.0 (11.0-16.0) % Plt Count 210 (160-400) X10*3/uL MPV 11.0 (9.4-12.3) fL Immature Gran % (Auto) 0.4 (0.0-0.4) % Neut % (Auto) 76.4 H (45-73) % Lymph % (Auto) 16.2 L (20-40) % [place] % (Auto) 6.9 (2-11) % Eos % (Auto) 0.0 (0-4) % Baso % (Auto) 0.1 (0-2) % Lymph # (Auto) 1.2 (1.2-4.9) X10*3/uL [place] # (Auto) 0.5 (0.1-1.2) X10*3/uL Eos # (Auto) 0.0 (0.0-0.4) X10*3/uL Baso # (Auto) 0.0 (0.0-0.2) X10*3/uL Abs Immat Gran (auto) 0.03 (0.00-0.03) X10*3/uL Absolute Neuts (auto) 5.4 (2.0-8.3) x10*3/uL Absolute Nucleated RBC 0.000 (0.0-0.012) X10*3/uL Nucleated RBC % (auto) 0.0 (0.0-0.2) /100WBC PT 13.2 (11.2-13.5) SEC INR 1.1 (0.9-1.1) APTT 24.1 L (26.7-34.1) SEC Sodium 141 (135-145) mmol/L Potassium 3.8 (3.3-5.1) mmol/L Chloride 104 (96-108) mmol/L Carbon Dioxide 27 (22-29) mmol/L Anion Gap 14 (12-20) BUN 9 (9-16) mg/dL Creatinine 0.73 (0.5-1.4) mg/dL Estim Creat Clear Calc 97.6 Estimated GFR > 60 Random Glucose 113 (60-115) mg/dL Lactic Acid 1.0 (0.5-2.0) mmol/L Calcium 9.9 (8.4-10.2) mg/dL Magnesium 1.9 (1.6-2.6) mg/dL Total Bilirubin 0.5 (0.0-1.0) mg/dL AST 22 (5-31) U/L ALT 16 (0-31) U/L Alkaline Phosphatase 50 (39-117) U/L Total Protein 7.1 (6.5-8.0) g/dL Albumin 4.4 (3.5-5.0) g/dL Lipase 15 (8-78) U/L Beta HCG, Quant < 2 mIU/mL Urine Color Dark Yellow Urine Appearance Cloudy Urine pH 5.5 (5.0-9.0) Ur Specific [place] 1.020 (1.005-1.025) Urine Protein Negative (Neg-Trace) mg/dL Urine Glucose (UA) Negative (Negative) mg/dL Urine Ketones Negative (Negative) mg/dL Urine Blood Negative (Negative) Urine Nitrite Negative (Negative) Ur Leukocyte Esterase Negative (Negative) Urine Test NEGATIVE (NEGATIVE) Urine Opiates Screen Not Detected (Not Detect) Ur Buprenorphine Scrn Not Detected (Not Detect) ng/mL Ur Oxycodone Screen Not Detected (Not Detect) ng/mL Urine Methadone Screen Not Detected (Not Detect) ng/mL Urine Fentanyl Screen Not Detected (Not Detect) Ur Barbiturates Screen Not Detected (Not Detect) Ur Phencyclidine Scrn Not Detected (Not Detect) Ur Amphetamines Screen Not Detected (Not Detect) U Benzodiazepines Scrn Not Detected (Not Detect) Urine Cocaine Screen Not Detected (Not Detect) U Marijuana (THC) Screen Not Detected (Not Detect) Ethyl Alcohol < 10 mg/dL Radiology Impression Discussion of test interpretation with radiology: I have reviewed the radiologist's reading. Radiologist Impression: CT abdomen and pelvis with contrast Comparison: None provided Findings: Minimal atelectasis at the lung bases. Dependent density in the gallbladder is likely vicarious excretion from previous administration. No gallbladder wall thickening or bile duct dilatation. Abdominal solid organs unremarkable. No urolithiasis. Small amount of abdominopelvic ascites. No pneumoperitoneum. Mesenteric vessels are patent. The mid appendix is slightly thick-walled and up to 7 mm in diameter. The proximal and distal appendix appear unremarkable. Uterus absent. Ovaries within normal limits. No acute fracture. IMPRESSION: Although the majority of the appendix appears normal, the midportion is thick-walled in large diameter up to 7 mm. Combined with a small amount of ascites ( more than expected for physiologic), the possibility of early acute appendicitis should be considered. This document has been electronically signed by: Luz Blanco MD on 05/18/2025 21:58:27 External Record Review External record reviewed: Outpatient record and Outside ED record ([facility] ED records requested) Prescription Management I considered prescription management with: Pain Medication and Antibiotic Discharge Plan Discharge Clinical Impression: Acute appendicitis Qualifiers: Acute appendicitis type: with localized peritonitis Appendicitis gangrene presence: without gangrene Appendicitis perforation presence: without perforation Appendicitis abscess presence: without abscess Qualified Code(s): K 35.30 - Acute appendicitis with localized peritonitis, without perforation or gangrene Patient Disposition: Admitted As Inpatient Discharge Date/Time: 05/19/25 12:05
[2025-05-18 19:40] LABS: MANUAL DIFF FLAG NO
[2025-05-18 19:41] LABS: Hematocrit 37.0 % (37.0-47.0); Hemoglobin 12.5 g/dl (12.0-16.0); Imm Gran Abs Auto 0.03 X10*3/uL (0.00-0.03); Imm Gran Pct Auto 0.4 % (0.0-0.4); Lymphocytes Absolute Auto 1.2 X10*3/uL (1.2-4.9); Mean Corpuscular HGB Conc 33.8 g/dl (31.0-35.0); Mean Corpuscular Hemoglobin 31.3 pg (27.0-33.0); Mean Corpuscular Volume 92.7 fL (80.0-98.0); NRBC Abs Auto 0.000 X10*3/uL (0.0-0.012); NRBC Pct Auto 0.0 /100WBC (0.0-0.2); Platelet Count 210 X10*3/uL (160-400); Red Blood Count 3.99 X10*6/uL (4.20-5.50); White Blood Count 7.1 X10*3/uL (4.8-10.8)
--- NOTE | 2025-05-18 19:42 | PC.NURSE ---
This RN was alerted by network technician that pt was having a seizure. Family reports pt has seizures when she is stressed or in pain. On assessment, pt was following commands and answering yes/no questions. Pt laying quietly on stretcher, airway patent. Vital signs obtained and MD Franklin notified. No new orders at this time.
[2025-05-18 19:46] VITALS: BP 113/68; PULSE 62; RESP 14; O2SAT 99
[2025-05-18 19:46] LABS: UPreg QC Valid YES
--- NOTE | 2025-05-18 19:48 | MHC.EDTECH ---
This tech was called over by pt's family member d/t pt having a seizure . RN notified right away, pt placed on her side, pt nontonic clonic. pt was unresponsive for approximately 15 seconds, was aroused, able to speak normally. Vitals obtained WNL. Pt placed on heart monitor and continuous BP checks [id number].
[2025-05-18 19:51] LABS: INTERNATIONAL NORM RATIO 1.1 (0.9-1.1); Prothrombin Time 13.2 SEC (11.2-13.5)
[2025-05-18 19:53] LABS: Partial Thromboplastin Time 24.1 SEC (26.7-34.1)
[2025-05-18 19:55] LABS: Cannabinoid Screen Urine Not Detected (Not Detect)
[2025-05-18 20:04] LABS: Alanine Aminotransferase 16 U/L (0-31); Albumin Level 4.4 g/dL (3.5-5.0); Alkaline Phosphatase 50 U/L (39-117); Anion Gap 14 (12-20); Aspartate Amino Transferase 22 U/L (5-31); Blood Urea Nitrogen 9 mg/dL (9-16); Calcium 9.9 mg/dL (8.4-10.2); Carbon Dioxide 27 mmol/L (22-29); Chloride 104 mmol/L (96-108); Creatinine Clr Calc Pharmacy 97.6; Estimated Glomerular Filt Rate > 60; Magnesium 1.9 mg/dL (1.6-2.6); Potassium 3.8 mmol/L (3.3-5.1); Sodium 141 mmol/L (135-145); Total Protein 7.1 g/dL (6.5-8.0)
[2025-05-18 20:25] LABS: Appearance Urine Cloudy; Glucose Urine UA Negative (Negative); PH 5.5 (5.0-9.0); Specific Gravity - Urine 1.020 (1.005-1.025)
[2025-05-18 20:26] LABS: Lipase 15 U/L (8-78)
[2025-05-18] MEDS: iohexoL 350 MG/ML 100 ML INFUS..BTL 85 ML IV (21:18)
--- NOTE | 2025-05-18 21:22 | PC.NURSE ---
20 g IV right AC
[2025-05-18 22:05] VITALS: BP 93/56; PULSE 86; RESP 16; TEMP 37.1; O2SAT 99
[2025-05-18] MEDS: metroNIDAZOLE/NS 500 MG/100 ML PIGGYBACK 100 MG IV (23:09)
[2025-05-18 23:10] VITALS: BP 90/59; PULSE 75; RESP 18; O2SAT 98
[2025-05-18 23:53] VITALS: BP 90/57
[2025-05-19] VITALS (14 sets, daily range): BP systolic 92–124; BP diastolic 57–75; PULSE 54–73; RESP 14–22; TEMP 36.4–37; O2SAT 97–100; BMI 23.0
[2025-05-19] MEDS: Dextrose 5 % and Lactated Ring 1,000 ML 125 ML IVCONT ×4 (00:10→23:31)
--- OUTSIDE RECORDS SUMMARY | 2025-05-19 02:28 | XMS_ITS | Clinical Summary ---
Author Organization [facility] Address [address] [place] [address] Phone Care Team Providers Care Surgical Lead Name Role Phone Anisha Crowell MD Primary Care Provider [phone] Allergies No known active allergies Medications acetaminophen (TYLENOL) 500 mg tablet Take 2 tablets (1,000 mg total) by mouth every 6 (six) hours if needed for mild pain or moderate pain. 32 tablet 4 Active ondansetron ODT (ZOFRAN-ODT) 8 mg disintegrating tablet Dissolve 1 tablet (8 mg total) on top of the tongue every 8 (eight) hours if needed for nausea or vomiting. 4 tablet 5 Active Active Problems No known active problems Encounters Date Type Department Care Team Description 05/17/2025 2:45 PM EST - 05/17/2025 10:01 PM EST Emergency [facility] Emergency [address] [place] [id number] Luis Antonio Jacobo MD Touriel, Ross, MD Nausea and vomiting, unspecified vomiting type (Primary Dx) Discharge Disposition: Home or Self Care 03/01/2025 5:31 PM EDT - 03/01/2025 6:02 PM EDT Emergency [facility] Emergency [address] [place] [id number] Jeff Jorgensen MD Acute chalazion of right eye (Primary Dx) Discharge Disposition: Home or Self Care from Last 3 Months Surgical History Surgery Date Site/Laterality Comments HYSTERECTOMY Medical History Medical History Date Comments Stroke (CMS/[facility] V24, CMS/[facility] V28) Social History Tobacco Use Types Packs/Day Years Used Date Smoking Tobacco: Never Smokeless Tobacco: Never Tobacco Cessation:Counseling Given: Not Answered Comments Unknown Sex and Gender Information Value Date Recorded Sex Assigned at Female 05/12/2024 5:13 PM EST Legal Sex Female 8:19 PM EST Gender Identity Female 05/12/2024 5:13 PM EST Sexual Orientation Not on file Last Filed Vital Signs Vital Sign Reading [...] Mass Index 25.02 05/17/2025 2:10 PM EST Plan of Treatment Health Maintenance Due Date Last Done Comments Breast Cancer Screening 1982 Hepatitis B Vaccines (1 of 3 - 19+ 3-dose series) 2001 Cervical Cancer Screening: Pap Smear 09/25/2003 HPV Vaccines (1 - 3-dose SCDM series) 2009 Cholesterol Screening (Lipid Panel) 05/13/2022 HIV Screening 05/13/2022 Hepatitis C Screening 05/13/2022 Medicare Annual Wellness Visit 05/13/2022 Social Influencers of Health Screening 05/13/2022 Depression Screening 06/11/2024 COVID-19 Vaccine ( - season) 2025 Influenza Vaccine (#1) 2025 , 07/03/2022, 05/16/2021, Additional history exists DTaP,Tdap,and Td Vaccines (3 - Td or Tdap) 07/03/2032 07/03/2022, 07/06/2012 RSV Immunization Adult Patients (1 - 1-dose 75+ series) 2057 Varicella Vaccines Aged Out 11/11/2007 No longer eligible based on patient's age to complete this topic MMR Vaccines Aged Out 01/31/2022 No longer eligi ble based on patient's age to complete this topic HIB Vaccines Aged Out No longer eligi ble based on patient's age to complete this topic Hepatitis A Vaccines Aged Out No long er eligible based on patient's age to complete this topic IPV Vaccines Aged Out No longer eligi ble based on patient's age to complete this topic Meningococcal ACWY Vaccine Aged Out N o longer eligible based on patient's age to complete this topic Meningococcal B Vaccine Aged Out No l onger eligible based on patient's age to complete this topic Pneumococcal Vaccine: Pediatrics (0 to 5 Years) and At-Risk Patients (6 to 49 Years) Aged Out No longer eligible based on patient's age to complete this topic RSV Immunization Patients Under 20 months Aged Out No longer eligible based on patient's age to complete this topic Procedures Procedure Name Priority Date/Time Associated Diagnosis Comments DRUG ABUSE SCREEN 8A PANEL, URINE STAT 05/17/2025 7:43 PM EST DARBY URINE CULTURE TUBE STAT 05/17/20 7:43 PM EST URINALYSIS WITH REFLEX MICROSCOPIC AND CULTURE STAT 05/17/2025 7:43 PM EST URINALYSIS WITH REFLEX MICROSCOPIC AND CULTURE STAT 05/17/2025 7:[address] ABDOMEN PELVIS W CONTRAST STAT 05/17/2025 4:57 PM EST ECG 12-LEAD STAT 05/17/2025 4:22 PM EST XR CHEST 1 VIEW STAT 05/17/2025 3:57 PM EST [id number], RSV, FLU A AND B QUALITATIVE RT-PCR, INTERNAL LAB STAT 05/17/2025 3:38 PM EST BETA HYDROXYBUTYRATE STAT 05/17/2025 3:26 PM EST CBC WITH AUTO DIFFERENTIAL STAT 05/17/2025 3:26 PM EST ACTIVATED PARTIAL THROMBOPLASTIN TIME STAT 05/17/2025 3:26 PM EST PROTHROMBIN TIME WITH INR STAT 05/17/2025 3:26 PM EST CBC AND DIFFERENTIAL STAT 05/17/2025 3:26 PM EST TROPONIN I HIGH SENSITIVITY STAT 05/17/2025 3:26 PM EST HCG, SERUM, QUALITATIVE STAT 05/17/20 3:26 PM EST LIPASE STAT 05/17/2025 3:26 PM EST MAGNESIUM STAT 05/17/2025 3:26 PM EST COMPREHENSIVE METABOLIC PANEL STAT 05/17/2025 3:26 PM EST POCT GLUCOSE BLOOD Routine 05/17/2025 2: 18 PM EST from Last 3 Months Results * (ABNORMAL) Urinalysis with reflex microscopic and culture (05/17/2025 7:43 PM EST) Specific Chunky Urine >1.045(H) 1.003 - 1.030 LAB URINALYSIS - AUTOMATED METHOD 05/17/2025 9:06 PM [facility] pH, Urine 7.5 5.0 - 8.0 pH LAB URINALYSIS - AUTOMATED METHOD 05/17/2025 9:06 PM [facility] Leukocytes, Urine Negative Negative LAB URINALYSIS - AUTOMATED METHOD 05/17/2025 9:06 PM [facility] Nitrite, Urine Negative Negative LAB URINALYSIS - AUTOMATED METHOD 05/17/2025 9:06 PM [facility] Protein, Urine Trace <=Trace mg/dL LAB URINALYSIS - AUTOMATED METHOD 05/17/2025 9:06 PM [facility] Glucose, Urine Negative Negative mg/dL LAB URINALYSIS - AUTOMATED METHOD 05/17/2025 9:06 PM [facility] Ketones, Urine Negative Negative mg/dL LAB URINALYSIS - AUTOMATED METHOD 05/17/2025 9:06 PM [facility] Urobilinogen , Urine 0.2 0.2 - 1.0 mg/dL LAB URINALYSIS - AUTOMATED METHOD 05/17/2025 9:06 PM [facility] Bilirubin, Urine Negative Negative LAB URINALYSIS - AUTOMATED METHOD 05/17/2025 9:06 PM [facility] Blood, Urine Negative Negative LAB URINALYSIS - AUTOMATED METHOD 05/17/2025 9:06 PM [facility] Urine Urine specimen obtained by clean catch procedure / Unknown Non-blood Collection / Unknown 05/17/2025 7:43 PM EST 05/17/2025 8:08 PM EST us Benny Moreau MD LAB URINE ORDERABLES Final Resul t Performing Organization Address City/[facility]/ZIP Co de Phone Number [facility] [address] [place] [address], [place] [phone] * Darby urine culture tube (05/17/2025 7:43 PM EST) Extra Tube Hold for add-ons. 05/17/2025 10:04 PM EST [facility] Comment:Auto resulted. Urine Urine specimen obtained by clean catch procedure / Unknown Non-blood Collection / Unknown 05/17/2025 7:43 PM EST 05/17/2025 8:08 PM EST us Benny Moreau MD LAB URINE ORDERABLES Final Resul t [facility] [address] [place] [address], [place] [phone] * (ABNORMAL) Drug abuse screen 8a panel, urine (05/17/2025 7:43 PM EST) Amphetamine Screen, Ur Negative Negative 05/17/2025 8:37 PM EST [facility] Comment:Certain OTC medicati ons containing ephedrine, phenylephrine, pseudoephedrine and phenylpropanolamine can cause false positive results. Barbiturate Screen, Ur Negative Negative 05/17/2025 8:37 PM EST [facility] Benzodiazepine Screen, Ur Negative Negative 05/17/2025 8:37 PM EST [facility] Cocaine Screen, Ur Negative Negative 2024 8:37 PM EST [facility] Opiate Screen, Ur Positive(A ) Negative 05/17/2025 8:37 PM EST [facility] Cannabinoid (THC) Screen, Ur Negative Negative 05/17/2025 8:37 PM EST [facility] Comment:Specimens from patie nts taking pantoprazole sodium (Protonix) have been shown to produce false positive results. Oxycodone Screen, Ur Negative Negative 12/2024 8:37 PM EST [facility] Fentanyl, Ur Negative Negative 05/17/2025 8:37 PM [facility] Urine Urine specimen obtained by clean catch procedure / Unknown Non-blood Collection / Unknown 05/17/2025 7:43 PM EST 05/17/2025 8:08 PM EST Narrative [facility] - 05/17/2025 8:37 PM EST Assay [...] MD LAB URINE ORDERABLES Final Resul t [facility] [address] [place] [address], [place] [phone] * CT Abdomen Pelvis w Contrast (05/17/2025 [...] document has been electronically signed by: Aiden aBshir MD on 05/17/2025 17:28:14 Benny Moreau MD [facility] CT PROCEDURES Final Result * 12-Lead ECG (05/17/2025 4:22 PM EST) Ventricular Rate ECG 80 BPM GEMUSE Atrial Rate 80 BPM GEMUSE P-R Interval 168 ms GEMUSE QRS Duration 78 ms GEMUSE Q-T Interval 426 ms GEMUSE QTc 491 ms GEMUSE P Wave Fonda 84 degrees GEMUSE R Fonda 51 degrees GEMUSE T Fonda 55 degrees GEMUSE ECG Interpretation Normal sinus rhythm Nonspecific T wave abnormality Prolonged QT Abnormal ECG When compared with ECG of 26-NOV-2017 14:39, No significant change was found Confirmed by Guancao ALFARO YUFENG ([id number]) on 05/17/2025 5:59:00 PM GEMUSE 05/17/2025 4:22 PM EST 05/17/2025 5:59 PM EST us Benny Moreau MD ECG ORDERABLES Final Result [...] Signed Date: 05/17/2025 16:18 ET Workstation ID: [id number] Transcribed By: Self Edit Transcribed Date: 05/17/2025 [...] Signed Date: 05/17/2025 16:18 ET Workstation ID: [id number] Transcribed By: Self Edit Transcribed Date: 05/17/2025 16:17 ET Benny Moreau MD IMG XR PROCEDURES Final Result * [id number], RSV, Influenza A and B qualitative RT-PCR (05/17/2025 3:38 PM EST) [facility] Influenza A PCR Not Detected Not Detected LAB MICROBIOLOGY METHOD 05/17/2025 4:28 PM EST [facility] Influenza B PCR Not Detected Not Detected LAB MICROBIOLOGY METHOD 05/17/2025 4:28 PM EST [facility] RSV PCR Not Detected Not Detected LAB MICROBIOLOGY METHOD 05/17/2025 4:28 PM EST [facility] SARS COV-2 Not Detected Not Detected LAB MICROBIOLOGY METHOD 05/17/2025 4:28 PM EST [facility] Swab Nasopharyngeal structure / Unknown Non-blood Collection / Unknown 05/17/2025 3:38 PM EST 05/17/2025 3:41 PM EST Benny Moreau MD LAB MICROBIOLOGY - GENERAL ORDER MAYRA Final Result [facility] [address] [place] [address], * Troponin I High Sensitivity (05/17/2025 3:26 PM EST) [facility] High Sensitivity Troponin I <3 <=34 ng/L 05/17/2025 4:12 PM EST [facility] Blood Venous blood specimen / Unknown Venipuncture / Unknown 05/17/2025 3:26 PM EST 05/17/2025 3:41 PM EST us Benny Moreau MD LAB BLOOD ORDERABLES Final Resul t Performing Organization Address [facility]/ZIP Co de Phone Number [facility] [address] [place] [address], [place] [phone] * (ABNORMAL) Beta hydroxybutyrate (05/17/2025 3:26 PM EST) Beta-Hydroxybu tyrate 4.2(H) 0.2 - 2.8 mg/dL 05/17/2025 5:07 PM EST [facility] Blood Venous blood specimen / Unknown Venipuncture / Unknown 05/17/2025 3:26 PM EST 05/17/2025 3:41 PM EST us Benny Moreau MD LAB BLOOD ORDERABLES Final Resul t Performing Organization Address [facility]/ZIP Co de Phone Number [facility] [address] [place] [address], [place] [phone] * (ABNORMAL) CBC auto differential (05/17/2025 3:26 PM EST) Pathologist [facility] WBC 7.7 4.8 - 10.8 K/[facility] LAB HEMETOLOGY METHOD 05/17/2025 3:51 PM EST [facility] RBC 4.10 3.80 - 4.80 M/[facility] LAB HEMETOLOGY METHOD 05/17/2025 3:51 PM EST [facility] Hemoglobin 12.7 11.5 - 16.0 g/dL LAB HEMETOLOGY METHOD 05/17/2025 3:51 PM EST [facility] Hematocrit 37.8 35.0 - 47.0 % LAB HEMETOLOGY METHOD 05/17/2025 3:51 PM EST [facility] MCV 91.7 79.0 - 98.0 FL LAB HEMETOLOGY METHOD 05/17/2025 3:51 PM [facility] MCH 30.8 27.0 - 32.0 pcg LAB HEMETOLOGY METHOD 05/17/2025 3:51 PM [facility] MCHC 33.6 32.0 - 37.0 g/dL LAB HEMETOLOGY METHOD 05/17/2025 3:51 PM [facility] RDW 11.8 11.0 - 15.0 % LAB HEMETOLOGY METHOD 05/17/2025 3:51 PM [facility] Platelets 251 130 - 400 K/mcL LAB HEMETOLOGY METHOD 05/17/2025 3:51 PM [facility] MPV 11.7(H) 7.0 - 11.0 FL LAB HEMETOLOGY METHOD 05/17/2025 3:51 PM [facility] NRBC 0.0 <1.0 % LAB HEMETOLOGY METHOD 05/17/2025 3:51 PM [facility] NRBC Absolute 0.00 <0.10 K/mcL LAB HEMETOLOGY METHOD 05/17/2025 3:51 PM [facility] Neutrophils Relative 79.5 % LAB HEMETOLOGY METHOD 05/17/2025 3:51 PM [facility] Lymphocytes Relative 17.4 % LAB HEMETOLOGY METHOD 05/17/2025 3:51 PM [facility] Monocytes Relative 2.6 % LAB HEMETOLOGY METHOD 05/17/2025 3:51 PM [facility] Eosinophils Relative 0.1 % LAB HEMETOLOGY METHOD 05/17/2025 3:51 PM [facility] Basophils Relative 0.1 % LAB HEMETOLOGY METHOD 05/17/2025 3:51 PM [facility] Immature Granulocytes Relative 0.3 % LAB HEMETOLOGY METHOD 05/17/2025 3:51 PM EST [facility] Neutrophils Absolute 6.14 1.50 - 7.00 K/mcL LAB HEMETOLOGY METHOD 05/17/2025 3:51 PM EST [facility] Lymphocytes Absolute 1.34 1.00 - 5.00 K/mcL LAB HEMETOLOGY METHOD 05/17/2025 3:51 PM EST [facility] Monocytes Absolute 0.20 0.20 - 1.00 K/[facility] LAB HEMETOLOGY METHOD 05/17/2025 3:51 PM EST [facility] Eosinophils Absolute 0.01 0.00 - 0.50 K/[facility] LAB HEMETOLOGY METHOD 05/17/2025 3:51 PM EST [facility] Basophils Absolute 0.01 0.00 - 0.20 K/mcL LAB HEMETOLOGY METHOD 05/17/2025 3:51 PM EST [facility] Immature Granulocytes Absolute 0.02 0.00 - 0.03 K/[facility] LAB HEMETOLOGY METHOD 05/17/2025 3:51 PM EST [facility] Blood Venous blood specimen / Unknown Venipuncture / Unknown 05/17/2025 3:26 PM EST 05/17/2025 3:41 PM EST us Benny Moreau MD LAB BLOOD ORDERABLES Final Resul t [facility] [address] [place] [address], * (ABNORMAL) APTT (05/17/2025 3:26 PM EST) aPTT 23.1(L) 24.1 - 39.3 sec LAB COAGULATION METHOD 05/17/2025 4:17 PM EST [facility] Blood Venous blood specimen / Unknown Venipuncture / Unknown 05/17/2025 3:26 PM EST 05/17/2025 3:41 PM EST us Benny Moreau MD LAB BLOOD ORDERABLES Final Resul t Performing Organization Address City/[facility] Co de Phone Number [facility] [address] [place] [address], [place] [phone] * Protime-INR (05/17/2025 3:26 PM EST) Pathologist [facility] Protime 11.6 10.6 - 13.9 sec LAB COAGULATION METHOD 05/17/2025 4:17 PM EST [facility] INR 0.9 LAB COAGULATION METHOD 05/17/2025 4:17 PM EST [facility] Blood Venous blood specimen / Unknown Venipuncture / Unknown 05/17/2025 3:26 PM EST 05/17/2025 3:41 PM EST us Benny Moreau MD LAB BLOOD ORDERABLES Final Resul t Performing Organization Address [facility] Co de Phone Number [facility] [address] [place] [address], [place] [phone] * hCG Qualitative (05/17/2025 3:26 PM EST) [facility] hCG Qual Negative Negative 05/17/2025 3:59 PM EST [facility] Blood Venous blood specimen / Unknown Venipuncture / Unknown 05/17/2025 3:26 PM EST 05/17/2025 3:41 PM EST us Benny Moreau MD LAB BLOOD ORDERABLES Final Resul t Performing Organization Address City/[facility]/ZIP Co de Phone Number [facility] [address] [place] [address], [place] [phone] * Magnesium (05/17/2025 3:26 PM EST) Pathologist [facility] Magnesium 1.9 1.9 - 2.6 mg/dL 05/17/2025 4:13 PM EST [facility] Blood Venous blood specimen / Unknown Venipuncture / Unknown 05/17/2025 3:26 PM EST 05/17/2025 3:41 PM EST us Benny Moreau MD LAB BLOOD ORDERABLES Final Resul t Performing Organization Address City/[facility]/ZIP Co de Phone Number [facility] [address] [place] [address], [place] [phone] * Lipase (05/17/2025 3:26 PM EST) Lipase 25 12 - 53 unit/L 05/17/2025 4:13 PM EST [facility] Blood Venous blood specimen / Unknown Venipuncture / Unknown 05/17/2025 3:26 PM EST 05/17/2025 3:41 PM EST us Benny Moreau MD LAB BLOOD ORDERABLES Final Resul t Performing Organization Address City/[facility]/ZIP Co de Phone Number [facility] [address] [place] [address], [place] [phone] * (ABNORMAL) Comprehensive Metabolic Panel (CMP) (05/17/2025 3:26 PM EST) Sodium 137 133 - 145 mmol/L 05/17/2025 4:13 PM [facility] Potassium 4.0 3.5 - 5.5 mmol/L 05/17/2025 4:13 PM [facility] Chloride 104 96 - 110 mmol/L 05/17/2025 4:13 PM [facility] CO2 22 21 - 32 mmol/L 05/17/2025 4:13 PM [facility] Anion Gap 11 3 - 11 05/17/2025 4:13 PM [facility] Glucose 150(H) 70 - 100 mg/dL 05/17/2025 4:13 PM [facility] BUN 12 5 - 25 mg/dL 05/17/2025 4:13 PM [facility] Creatinine 0.67 0.50 - 1.10 mg/dL 05/17/2025 4:13 PM [facility] eGFR 112 >=60 mL/min/1. 73m2 05/17/2025 4:13 PM [facility] Comment:Calculation based on the Chronic Kidney Disease Epidemiology Collaboration (CKD-EPI) equation refit without adjustment for race. BUN/Creatinine Ratio 17.9 05/17/2025 4:13 PM [facility] Calcium 9.5 8.5 - 10.5 mg/dL 05/17/2025 4:13 PM [facility] AST (SGOT) 18 10 - 42 unit/L 05/17/2025 4:13 PM [facility] ALT (SGPT) 15 10 - 60 unit/L 05/17/2025 4:13 PM [facility] Alkaline Phosphatase 58 42 - 121 unit/L 05/17/2025 4:13 PM [facility] Total Protein 6.8 6.0 - 8.0 g/dL 05/17/2025 4:13 PM [facility] Albumin 4.4 3.2 - 5.0 g/dL 05/17/2025 4:13 PM [facility] Total Bilirubin 0.5 0.0 - 1.4 mg/dL 05/17/2025 4:13 PM [facility] Blood Venous blood specimen / Unknown Venipuncture / Unknown 05/17/2025 3:26 PM EST 05/17/2025 3:41 PM EST us Benny Moreau MD LAB BLOOD ORDERABLES Final Resul t [facility] [address] [place] [address], [place] [phone] * (ABNORMAL) POCT Glucose, blood (05/17/2025 2:18 PM EST) Glucose POCT 146(H) 70 - 100 mg/dL 05/17/2025 2:19 PM EST [facility] Blood Capillary blood specimen / Unknown 05/17/2025 2:18 PM EST 05/17/2025 2:20 PM EST us Benny Moreau MD LAB POINT OF CARE TE ST DOCKED DEVICE UNSOLICITED RESULTS Final Result [facility] [address] [place] [address], [place] [phone] from Last 3 Months Insurance MEDICARE MEDICAID - [place] Care Teams Surgical Lead Relationship Specialty Start Date End Date Anisha Crowell MD [address] [address] PCP - General Internal Medicine 03/01/25
--- NOTE | 2025-05-19 03:33 | HO.NURTONUR ---
Pt is a 44 y.o. female coming in with abdominal pain around umbilicus, n/v, and decreased PO intake. Pt was seen at [facility] yesterday and dx with gastroenteritis. Abd CT today shows Although the majority of the appendix appears normal, the midportion is thick-walled in large diameter up to 7 mm. Combined with a small amount of ascites ( more than expected for physiologic), the possibility of early acute appendicitis should be considered. Labs grossly unremarkable. Pt received IV fluids and abx in ED. VSS, a&ox4. 20 g IV right AC.
--- NOTE | 2025-05-19 06:10 | PC.NURSE ---
Pt resting quietly on stretcher, calm and cooperative. Call rosado within reach, all needs met at this time.
[2025-05-19] MEDS: metroNIDAZOLE/NS 500 MG/100 ML PIGGYBACK 100 MG IV (07:18)
--- NOTE | 2025-05-19 07:24 | P.HPGS_ITS ---
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 She initially was seen at [facility] for this same issue but was discharged as viral gastroenteritis. She states the pain has only gotten worse. Now hurts to even walk. She endorses associated nausea and vomiting. Denying fevers. Workup in the ED showing no leukocytosis, electrolyte abnormalities, CT scan was obtained showing thick walled appendix up to 7 mm, small volume of ascites consistent with acute appendicitis. She was st arted on Rocephin and Flagyl, fluids. 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 She takes propranolol, rizatriptan daily for headaches. Additionally takes a baby aspirin daily. Surgical history significant for hysterectomy. Denies additional surgeries. Denies alcohol, tobacco, drug use. Denies allergies <Checo Guadalupe PA-C - Last Filed: 05/19/25 08:44> FOR[facility]LY [facility] Past Medical History Medical History: Medical History (Updated 05/19/25 @ 10:36 by Angela Sapp RN) Stress-induced epilepsy Migraines CVA (cerebral vascular accident) <Checo Guadalupe PA-C - Last Filed: 05/19/25 08:44> Surgical History Surgical History: Surgical History (Updated 05/19/25 @ 10:35 by Angela Sapp RN) H/O: hysterectomy <Checo Guadalupe PA-C - Last Filed: 05/19/25 08:44> Social History Social History: Social History Patient Tobacco Use Status: Never used Tobacco Advance Directives: No Advance Directives Information Provided: No Nutrition Risks: No Nutritional Risk <Checo Guadalupe PA-C - Last Filed: 05/19/25 08:44> Meds Allergies/Adverse reactions: Allergies Allergy/AdvReac Type Severity Reaction Status Date / Time No Known Allergies Allergy Verified 05/18/25 19:18 <Checo Guadalupe PA-C - Last Filed: 05/19/25 08:44> Active Medications: Current Medications Calcium Carbonate (Calcium Carbonate 750 Mg Tab.Chew) 750 mg PO Q4H PRN PRN Reason: Heartburn Hydromorphone HCl (Hydromorphone Hcl 0.5 Mg/0.5 Ml Syringe) 0.5 mg IVPUSH Q3H PRN; Protocol PRN Reason: Pain, Severe (Pain Scale 7-10) Acetaminophen (Ofirmev) 1,000 mg in 100 mls @ 400 mls/hr IV Q6H PRN PRN Reason: Pain, Mild (Pain Scale 1-3) Dextrose/Lactated Ringer's (D5lr) 1,000 mls @ 125 mls/hr IVCONT .Q8H [facility] Last Infusion: 05/19/25 07:18 Dose: 0 mls/hr Metronidazole (Flagyl) 500 mg in 100 mls @ 100 mls/hr IV Q8H [facility] Last Admin: 05/19/25 07:18 Dose: 100 mls/hr Ceftriaxone Sodium 1 gm/ (Sodium Chloride) 50 mls @ 100 mls/hr IV Q12H [facility] Magnesium Hydroxide (Milk Of Magnesia 30 Ml Oral.Susp) 30 ml PO DAILY PRN PRN Reason: Constipation Melatonin (Melatonin 3 Mg Tablet) 6 mg PO BEDTIME PRN PRN Reason: Insomnia Ondansetron HCl (Ondansetron Hcl 4 Mg/2 Ml Vial) 4 mg IVPUSH QID PRN PRN Reason: Nausea Oxycodone HCl (Oxycodone Hcl Immed Release 5 Mg Tablet) 5 mg PO Q6H PRN PRN Reason: Pain, Moderate(Pain Scale 4-6) Sodium Chloride (0.9 % Sodium Chloride Flush 3 Ml Syringe) 3 ml IVFLUSH QSHIFT [facility] Last Admin: 05/18/25 23:19 Dose: Not Given <Checo Guadalupe PA-C - Last Filed: 05/19/25 08:44> Home medications: Home Medications ?Medication ?Instructions ?Recorded ?Confirmed ?Last Taken ?Type aspirin 81 mg tablet 81 mg PO DAILY 05/19/2503/0505/18/25 History fluticasone propionate 50 1 spray intranasal DAILY PRN Nasal 05/19/25 05/19/25 Unknown History mcg/actuation nasal Congestion spray,suspension multivitamin 1 tab PO DAILY 05/19/2503/0505/18/25 History ondansetron 8 mg disintegrating 8 mg PO Q6H PRN Nausea And Vomiting 05/19/25 05/19/25 Unknown History tablet propranolol 120 mg capsule,24 240 mg PO BEDTIME 05/19/25 05/18/25 History hr,extended release rizatriptan 5 mg tablet 5 mg PO DAILY PRN Migraine H eadache 05/19/25 05/19/25 U nknown History valacyclovir 500 mg tablet 500 mg PO DAILY 05/19/2505/18/25 History <Checo Guadalupe PA-C - Last Filed: 05/19/25 08:44> Physical Exam Vital Signs: Vital Signs: Last Vital Signs Temp 98.2 F 05/19/25 06:03 Pulse 73 05/19/25 07:19 Resp 17 05/19/25 07:19 BP 103/67 05/19/25 07:19 Pulse Ox 100 05/19/25 07:19 O2 Del Method Room Air 05/19/25 07:19 BMI result Body Mass Index 23.5 <EMMANUEL Tolbert Last Filed: 05/19/25 08:44> Const: General: no acute distress; No comfortable <EMMANUEL Tolbert Last Filed: 05/19/25 08:44> Orientation/consciousness: patient oriented x3 <EMMANUEL Tolbert Last Filed: 05/19/25 08:44> Resp: Effort & Inspection: normal respiratory effort and able to speak in complete sentences <EMMANUEL Tolbert Last Filed: 05/19/25 08:44> GI: Inspection: No distended <EMMANUEL Tolbert Last Filed: 05/19/25 08:44> Palpation (GI): Soft to palpation and Tenderness to palpation present (GI) (Throughout, focal area in umbilical, right lower quadrant) at McBurney's point, periumbilically and with rebound tenderness; Rovsing's sign negative <Checo Guadalupe PA-C - Last Filed: 05/19/25 08:44> Neuro: General: patient oriented x3 <Checo Guadalupe PA-C - Last Filed: 05/19/25 08:44> Results Results Labs: Short CBC 05/18/25 Range/Units 19:34 WBC 7.1 (4.8-10.8) X10*3/uL Hgb 12.5 (12.0-16.0) g/dl Hct 37.0 (37.0-47.0) % Plt Count 210 (160-400) X10*3/uL BMP 05/18/25 19:34 Sodium 141 Potassium 3.8 Chloride 104 Carbon Dioxide 27 BUN 9 Creatinine 0.73 Calcium 9.9 Liver Function 05/18/25 Range/Units 19:34 Total Bilirubin 0.5 (0.0-1.0) mg/dL AST 22 (5-31) U/L ALT 16 (0-31) U/L Alkaline Phosphatase 50 (39-117) U/L Albumin 4.4 (3.5-5.0) g/dL Urine 05/18/25 05/18/25 Range/Units 19:31 19:34 Urine Color Dark Yellow Urine Appearance Cloudy Urine pH 5.5 (5.0-9.0) Ur Specific [place] 1.020 (1.005-1.025) Urine Protein Negative (Neg-Trace) mg/dL Urine Glucose (UA) Negative (Negative) mg/dL Urine Test NEGATIVE (NEGATIVE) <Checo Guadalupe PA-C - Last Filed: 05/19/25 08:44> Assessment and Plan (1) Acute appendicitis: Qualifiers: Acute appendicitis type: with localized peritonitis Appendicitis abscess presence: without abscess Appendicitis gangrene presence: without gangrene Appendicitis perforation presence: without perforation Qualified Code(s): K35.30 - Acute appendicitis with localized peritonitis, without perforation or gangrene <Checo Guadalupe PA-C - Last Filed: 05/19/25 08:44> Status: Acute <Checo Guadalupe PA-C - Last Filed: 05/19/25 08:44> 44 year old female with medical history significant for migraines, 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 Was treated at [facility] for viral gastroenteritis pain continued to worsen, has associated nausea and vomiting. Found to have acute appendicitis by CT. Showing dilated appendix with small volume ascities consistent with acute appendicitis. Additional workup showing no leukocytosis, or electrolyte abormalities. On exam patient is very tender throughout the abdomen with a focal point in the umbilical, and right lower quadrant. There is positive McBurney's, rebound tenderness, negative Rovsing's. Abdomen remains soft. She has been started on Rocephin and Flagyl. We discussed options for treatment including antibiotics versus surgical intervention. Patient elected to choose surgical intervention, discussed risks, benefits, alternatives patient understands and agrees. She has been added onto the OR schedule for this afternoon. 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 Was treated at [facility] for viral gastroenteritis pain continued to worsen, has associated nausea and vomiting. Found to have acute appendicitis by CT. Showing dilated appendix with small volume ascities consistent with acute appendicitis. Additional workup showing no leukocytosis, or electrolyte abormalities. On exam patient is very tender throughout the abdomen with a focal point in the umbilical, and right lower quadrant. There is positive McBurney's, rebound tenderness, negative Rovsing's. Abdomen remains soft. She has been started on Rocephin and Flagyl. We discussed options for treatment including antibiotics versus surgical intervention. Patient elected to choose surgical intervention, discussed risks, benefits, alternatives patient understands and agrees. She has been added onto the OR schedule for this afternoon. NPO Lap appy possible open IV antibiotics IV fluids Patient independently seen and examined in a agree with the above assessment and plan. CT images reviewed with evidence of acute appendicitis noted. I reviewed the options in detail with the patient including treatment with antibiotics verses laparoscopic/open appendectomy. After discussion of the procedure, risks and alternatives, she consents to a laparoscopic or possible open appendectomy. <Elton Walden MD - Last Filed: 05/19/25 11:36> Quality Stroke Does the patient have a stroke diagnosis?: No <Checo Guadalupe PA-C - Last Filed: 05/19/25 08:44> VTE Prior VTE?: No <Checo Guadalupe PA-C - Last Filed: 05/19/25 08:44> VTE Risk Level:: Surgical - low <Checo Guadalupe PA-C - Last Filed: 05/19/25 08:44> VTE Device Contraindication: N/A - Device Ordered <Checo Guadalupe PA-C - Last Filed: 05/19/25 08:44> VTE Drug Contraindication: Treatment Not Indicated <Checo Guadalupe PA-C - Last Filed: 05/19/25 08:44> Procedures Date of Service Date of Service: 05/19/25 <Checo Guadalupe PA-C - Last Filed: 05/19/25 08:44> 05/19/25 <Elton Walden MD - Last Filed: 05/19/25 11:36>
--- NOTE | 2025-05-19 08:09 | PHA.MEDREC ---
Addendum entered by Doris Dawson RPh 05/19/25 08:32: Reviewed by [facility] Original Note: Pharmacy Consult ? Medication Reconciliation Pharmacy has completed the medication reconciliation. Spoke with pt and she confirmed her medications.
--- NOTE | 2025-05-19 12:59 | P.CONAN_ITS ---
Documented by User: Paz Bassett NP 05/19/25 11:15 HPI - Anesthesia Eval Consult details Narrative: 44 yr old female for appendectomy laparoscopic CVA in 2010 while on Ortho Evra patch: follows [facility] neurology; residual right sided weakness, memory loss. Last visit 12/2024, stable, MRI was repeated Jan 2025, see below. Stress induced seizures: sees [facility] neuro, not on meds; last seizure was at [facility] last night when in pain. Migraines: on propranolol PMFSH Active Problems Active Problems: All Active Problems Acute appendicitis (Acute) Past Medical History Medical History (Updated 05/19/25 @ 10:36 by Angela Sapp RN) Stress-induced epilepsy Migraines CVA (cerebral vascular accident) Family History Family history of problems with anesthesia: No Surgical History Surgical History (Updated 05/19/25 @ 10:35 by Angela Sapp, UZMA) H/O: hysterectomy History of Problems with Anesthesia: No Social History Social History Patient Tobacco Use Status: Never used Tobacco Meds Allergies Allergy/AdvReac Type Severity Reaction Status Date / Time No Known Allergies Allergy Verified 05/18/25 19:18 Active Medications: Current Medications Calcium Carbonate (Calcium Carbonate 750 Mg Tab.Chew) 750 mg PO Q4H PRN PRN Reason: Heartburn Hydromorphone HCl (Hydromorphone Hcl 0.5 Mg/0.5 Ml Syringe) 0.5 mg IVPUSH Q3H PRN; Protocol PRN Reason: Pain, Severe (Pain Scale 7-10) Last Admin: 05/19/25 08:44 Dose: 0.5 mg Acetaminophen (Ofirmev) 1,000 mg in 100 mls @ 400 mls/hr IV Q6H PRN PRN Reason: Pain, Mild (Pain Scale 1-3) Dextrose/Lactated Ringer's (D5lr) 1,000 mls @ 125 mls/hr IVCONT .Q8H [facility] Last Infusion: 05/19/25 08:43 Dose: 125 mls/hr Metronidazole (Flagyl) 500 mg in 100 mls @ 100 mls/hr IV Q8H [facility] Last Infusion: 05/19/25 08:34 Dose: Infused Ceftriaxone Sodium 1 gm/ (Sodium Chloride) 50 mls @ 100 mls/hr IV Q12H [facility] Last Admin: 05/19/25 10:39 Dose: 100 mls/hr Magnesium Hydroxide (Milk Of Magnesia 30 Ml Oral.Susp) 30 ml PO DAILY PRN PRN Reason: Constipation Melatonin (Melatonin 3 Mg Tablet) 6 mg PO BEDTIME PRN PRN Reason: Insomnia Ondansetron HCl (Ondansetron Hcl 4 Mg/2 Ml Vial) 4 mg IVPUSH QID PRN PRN Reason: Nausea Oxycodone HCl (Oxycodone Hcl Immed Release 5 Mg Tablet) 5 mg PO Q6H PRN PRN Reason: Pain, Moderate(Pain Scale 4-6) Sodium Chloride (0.9 % Sodium Chloride Flush 3 Ml Syringe) [facility] Last Admin: 05/19/25 07:46 Dose: Not Given Home Medications ?Medication ?Instructions ?Recorded ?Confirmed ?Last Taken ?Type aspirin 81 mg tablet 81 mg PO DAILY 05/19/2503/0505/18/25 History fluticasone propionate 50 1 spray intranasal DAILY PRN Nasal 05/19/25 05/19/25 Unknown History mcg/actuation nasal Congestion spray,suspension multivitamin 1 tab PO DAILY 05/19/2503/0505/18/25 History ondansetron 8 mg disintegrating 8 mg PO Q6H PRN Nausea And Vomiting 05/19/25 05/19/25 Unknown History tablet propranolol 120 mg capsule,24 240 mg PO BEDTIME 05/19/25 05/18/25 History hr,extended release rizatriptan 5 mg tablet 5 mg PO DAILY PRN Migraine H eadache 05/19/25 05/19/25 Unknown History valacyclovir 500 mg tablet 500 mg PO DAILY 05/19/2505/18/25 History Exam Height,Weight and Vital Signs: Height 5 ft 7 in Weight 68.039 kg Last Vital Signs Temp 98.2 F 05/19/25 06:03 Pulse 73 05/19/25 07:19 Resp 22 H 05/19/25 08:44 BP 103/67 05/19/25 07:19 Pulse Ox 100 05/19/25 07:19 O2 Del Method Room Air 05/19/25 07:19 Pertinent Lab Results Pertinent Lab Results: Laboratory Tests 05/18/25 05/18/25 05/18/25 19:31 19:34 22:29 WBC 7.1 RBC 3.99 L Hgb 12.5 Hct 37.0 MCV 92.7 MCH 31.3 MCHC 33.8 RDW 12.0 Plt Count 210 MPV 11.0 Immature Gran % (Auto) 0.4 Neut % (Auto) 76.4 H Lymph % (Auto) 16.2 L [place] % (Auto) 6.9 Eos % (Auto) 0.0 Baso % (Auto) 0.1 Lymph # (Auto) 1.2 [place] # (Auto) 0.5 Eos # (Auto) 0.0 Baso # (Auto) 0.0 Abs Immat Gran (auto) 0.03 Absolute Neuts (auto) 5.4 Absolute Nucleated RBC 0.000 Nucleated RBC % (auto) 0.0 PT 13.2 INR 1.1 APTT 24.1 L Sodium 141 Potassium 3.8 Chloride 104 Carbon Dioxide 27 Anion Gap 14 BUN 9 Creatinine 0.73 Estim Creat Clear Calc 97.6 Estimated GFR > 60 Random Glucose 113 Lactic Acid 1.0 Calcium 9.9 Magnesium 1.9 Total Bilirubin 0.5 AST 22 ALT 16 Alkaline Phosphatase 50 Total Protein 7.1 Albumin 4.4 Lipase 15 Beta HCG, Quant < 2 Urine Color Dark Yellow Urine Appearance Cloudy Urine pH 5.5 Ur Specific [place] 1.020 Urine Protein Negative Urine Glucose (UA) Negative Urine Ketones Negative Urine Blood Negative Urine Nitrite Negative Ur Leukocyte Esterase Negative Urine Test NEGATIVE Urine Opiates Screen Not Detected Ur Buprenorphine Scrn Not Detected Ur Oxycodone Screen Not Detected Urine Methadone Screen Not Detected Urine Fentanyl Screen Not Detected Ur Barbiturates Screen Not Detected Ur Phencyclidine Scrn Not Detected Ur Amphetamines Screen Not Detected U Benzodiazepines Scrn Not Detected Urine Cocaine Screen Not Detected U Marijuana (THC) Screen Not Detected Ethyl Alcohol < 10 Narrative Narrative: Brain MRI 01/2025 No acute/subacute infart, mass, hemorrhage, abnormal intracranial abnormality. No significant change to chronic left thalamic infarct. Assessment and Plan Final Anesthetic Review Family History of Problems with Anesthesia: No History of Problems with Anesthesia: No Documented by User: Raquel Ceja DO 05/19/25 13:01 COUNTS INCLUDE 234 BEDS AT THE [facility] Past Medical History Medical History (Updated 05/19/25 @ 10:36 by Angela Sapp RN) Stress-induced epilepsy Migraines CVA (cerebral vascular accident) Family History Family history of problems with anesthesia: No Surgical History Surgical History (Updated 05/19/25 @ 10:35 by Angela Sapp RN) H/O: hysterectomy History of Problems with Anesthesia: No Social History Social History Patient Tobacco Use Status: Never used Tobacco Meds Allergies Allergy/AdvReac Type Severity Reaction Status Date / Time No Known Allergies Allergy Verified 05/18/25 19:18 Home Medications ?Medication ?Instructions ?Recorded ?Confirmed ?Last Taken ?Type aspirin 81 mg tablet 81 mg PO DAILY 05/19/2503/0505/18/25 History fluticasone propionate 50 1 spray intranasal DAILY PRN Nasal 05/19/25 05/19/25 Unknown History mcg/actuation nasal Congestion spray,suspension multivitamin 1 tab PO DAILY 05/19/2503/0505/18/25 History ondansetron 8 mg disintegrating 8 mg PO Q6H PRN Nausea And Vomiting 05/19/25 05/19/25 Unknown History tablet propranolol 120 mg capsule,24 240 mg PO BEDTIME 05/19/25 05/18/25 History hr,extended release rizatriptan 5 mg tablet 5 mg PO DAILY PRN Migraine H eadache 05/19/25 05/19/25 Unknown History valacyclovir 500 mg tablet 500 mg PO DAILY 05/19/2505/18/25 History Exam Exam Date and Time: 05/19/25 1300 Air[address] Mallampati Class: II TM Dist: >3cm Neck ROM: Full Loose/Missing/Broken Teeth: No (patient denies any loose or broken teeth) Heart: S1S2 Lungs: CTAB Assessment and Plan Assessment Anesthesia Assessment: Anesthesia Plan Discussed and Chart Reviewed Final Anesthetic Review Family History of Problems with Anesthesia: No History of Problems with Anesthesia: No NPO: Yes ASA Class: II Final Preanesthetic Review: No Changes in Pt Med Stat, Meds/Allgs Chart Reviewed, Consent Obtained/Reviewed and Anes Risks/Benef Reviewed Patient Risk: Low Procedure Risk: Low Anesthetic Plan Anesthetic Plan: GA and Agree w/ Assess. and Plan Disposition: Standard PACU
--- NOTE | 2025-05-19 14:51 | W.PM.OPN ---
Operative Note Operative Note Date of Service: 05/19/25 Narrative: Preoperative diagnosis: Acute appendicitis Postoperative diagnosis: Same Procedure: Laparoscopic appendectomy Surgeon: Elton Walden MD Social Services Designee: Checo Guadalupe PA-C Anesthesia: General endotracheal Indications for procedure: 44-year-old female patient presenting with complaints of abdominal pain in the right lower quadrant found to have evidence of acute appendicitis by CT abdomen and pelvis. Operative findings: Minimally inflamed appendix. Approximately 75 mL of bloody tinged peritoneal fluid noted. Examination of ovaries revealed no evidence of ruptured ovarian cyst. Specimen: Appendix Estimated blood loss: Less than 2 mL Complications: None Procedure details: Patient was brought to the OR and placed in a supine position. After administering general anesthesia the patient's abdomen was prepped with ChloraPrep and draped in a sterile fashion. A surgical time-out was called and consent confirmed. Patient received preoperative antibiotics and Venodyne boots were in place. Local anesthesia consisting of 0.5% Sensorcaine with epinephrine was infiltrated in periumbilical region. A 5 mm incision was made below the umbilicus and carried down through subcutaneous tissue. A Veress needle was then inserted while elevating abdominal cavity with towel clips. After a positive drop test the abdomen was insufflated to a pressure of 15 mm of mercury. The Veress needle was removed and a 5 mm trocar inserted. The camera was then inserted in the abdomen explored. A 2nd 5 mm trocars placed in the lower midline. A 12 mm trocar was then placed in the left lower quadrant. The patient was then placed in a Trendelenburg position and rotated to the left. The appendix was identified in the right lower quadrant and brought up using blunt dissecting clamps. The mesentery of the appendix was then divided using the LigaSure. The appendiceal artery was cauterized and divided using the LigaSure. Dissection was continued down to the base of the cecum. An Endo-ROSSANA stapler with a purple reload was then used to divide the appendix at the base with the cecum. The appendix was then placed in Endo-Catch bag and brought out through the left lower quadrant incision. The abdomen was then irrigated with saline solution and suctioned dry. Wounds were checked for hemostasis. CO2 was then evacuated from the abdominal cavity and all trocars removed. Fascia was closed in the left lower quadrant incision using a [id number] Polysorb suture. Skin was closed at all incisions using a subcuticular 4-0 Polysorb suture. Steri-Strips 2 x 2 gauze and Tegaderm were then applied. The patient tolerated the procedure well. Sponge, instrument, needle counts reported as correct. The patient was transferred to PACU in stable condition.
--- NOTE | 2025-05-19 16:20 | PC.NURSE ---
Pt ambulated to BR tolerated well. instructed on use of incentive spiromter
[2025-05-19] MEDS: 0.9 % Sodium Chloride Flush 3 ML SYRINGE IVFLUSH (19:04)
[2025-05-19] MEDS: Propranolol HCL LA 80 MG CAP.SA.24H 240 MG PO (21:13)
[2025-05-20 03:46] VITALS: BP 103/67; PULSE 80; RESP 18; TEMP 36.9; O2SAT 98
--- NOTE | 2025-05-20 07:20 | PM.PNGS ---
Subjective Subjective Date of Service: 05/20/25 Interval history: Doing well, Denies pain. Has been up and out of bed, denies issues with urination. She is passing gas. Had some mild nausea with diet last night. Denies current nausea. Feels ready to go home Physical Exam Vital Signs: Vital Signs: Last Vital Signs Temp 98.4 F 05/20/25 03:46 Pulse 80 05/20/25 03:46 Resp 18 05/20/25 03:46 BP 103/67 05/20/25 03:46 Pulse Ox 98 05/20/25 03:46 O2 Del Method Room Air 05/20/25 03:46 O2 Flow Rate 4 05/19/25 15:02 BMI result Body Mass Index 23.0 Const: General: comfortable and no acute distress Orientation/consciousness: patient oriented x3 GI: Other: Incision sites dressings clean and dry, no significant bleeding or drainage noted Inspection: No distended Palpation (GI): Soft to palpation, nontender and no guarding Neuro: General: patient oriented x3 Objective Data Active Medications Calcium Carbonate (Calcium Carbonate 750 Mg Tab.Chew) 750 mg PO Q4H PRN PRN Reason: Heartburn Docusate Sodium (Docusate Sodium 100 Mg Capsule) 100 mg PO BID [facility] Last Admin: 05/19/25 21:13 Dose: 100 mg Documented By: UGO Hydromorphone HCl (Hydromorphone Hcl 0.5 Mg/0.5 Ml Syringe) 0.5 mg IVPUSH Q3H PRN; Protocol PRN Reason: Pain, Severe (Pain Scale 7-10) Last Admin: 05/19/25 13:36 Dose: 0.5 mg Documented By: LEVI Acetaminophen (Ofirmev) 1,000 mg in 100 mls @ 400 mls/hr IV Q6H PRN PRN Reason: Pain, Mild (Pain Scale 1-3) Last Infusion: 05/19/25 15:38 Dose: Infused Documented By: ARIEL Dextrose/Lactated Ringer's (D5lr) 1,000 mls @ 125 mls/hr IVCONT .Q8H [facility] Last Admin: 05/19/25 23:31 Dose: 125 mls/hr Documented By: UGO Ibuprofen (Ibuprofen 800 Mg Tablet) 800 mg PO Q8H PRN PRN Reason: Pain, Mild 1-3,fever,headache Influenza Virus Vaccine (Flu Vacc [id number](6mo Up)/Pf 0.5 Ml Syringe) 0.5 ml IM .ONCE ONE Stop: 05/20/25 10:01 Magnesium Hydroxide (Milk Of Magnesia 30 Ml Oral.Susp) 30 ml PO DAILY PRN PRN Reason: Constipation Melatonin (Melatonin 3 Mg Tablet) 6 mg PO BEDTIME PRN PRN Reason: Insomnia Last Admin: 05/19/25 21:13 Dose: 6 mg Documented By: UGO Ondansetron HCl (Ondansetron Hcl 4 Mg/2 Ml Vial) 4 mg IVPUSH QID PRN PRN Reason: Nausea Last Admin: 05/19/25 19:04 Dose: 4 mg Documented By: UGO Oxycodone HCl (Oxycodone Hcl Immed Release 5 Mg Tablet) 5 mg PO Q6H PRN PRN Reason: Pain, Moderate(Pain Scale 4-6) Propranolol HCl (Propranolol Hcl La 80 Mg Cap.Sa.24h) 240 mg PO BEDTIME DAVID; Protocol Last Admin: 05/19/25 21:13 Dose: 240 mg Documented By: UGO Sodium Chloride (0.9 % Sodium Chloride Flush 3 Ml Syringe) [facility] Last Admin: 05/19/25 19:04 Dose: 3 ml Documented By: UGO Valacyclovir HCl (Valacyclovir Hcl 500 Mg Tablet) 500 mg PO DAILY DAVID Labs 05/18/25 19:34 05/18/25 19:34 Microbiology Microbiology Results: Microbiology 05/18/25 22:30 Blood Culture - Preliminary Blood - Venous No growth after 24 hours. 05/18/25 22:29 Blood Culture - Preliminary Blood - Venous No growth after 24 hours. Procedures Date of Service Date of Service: 05/20/25 Progress Note: A&P Assessment and plan (1) Acute appendicitis: Status: Acute Plan 44 year old female admitted for acute appendicitis, now POD1 s/p laparoscopic appendectomy. Patient doing well, denies pain. She did experience nausea after trialing diet last night but was able to tolerate diet. Denies nausea this morning. She is ambulating. Passing gas, denies issues with urination. She feels ready to go home. Abdomen exam is soft and benign. Dressings in place appear clean and dry, no significant bleeding. Will discharge home today. Reinforced activity restrictions, patient will follow up in 1-2 weeks in the office Time Spent With Patient Time: Total time managing care of this patient today ____ minutes. Quality Stroke Does the patient have a stroke diagnosis?: No VTE Prior VTE?: No VTE Risk Level:: Surgical - low VTE Device Contraindication: N/A - Device Ordered VTE Drug Contraindication: Treatment Not Indicated
[2025-05-20] MEDS: Flu Vacc TS2025-26(6mo up)/PF 0.5 ML SYRINGE IM (08:19)
--- NOTE | 2025-05-20 08:22 | HO.POSTANES ---
Post Anesthesia Evaluation Post Anesthesia Evaluation Date of Service: 05/20/25 Vital Signs: Vital Signs Temp Pulse Resp BP Pulse Ox O2 Del Method 05/20/25 03:46 98.4 F 80 18 103/67 98 Room Air 05/19/25 23:56 98.1 F 68 16 110/66 97 Room Air 05/19/25 21:15 66 102/64 Anesthesia: General Mental Status: Awake Pain Control: Satisfactory Nausea/Vomiting: None Hydration: Adequate Anesthesia-Related Issues: No Anes. Related Issues
--- NOTE | 2025-05-20 08:37 | MHC.CM.PN ---
pt dcd home self care
--- NOTE | 2025-05-20 08:45 | P.DS_ITS ---
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 She initially was seen at [facility] for this same issue but was discharged as viral gastroenteritis. She states the pain has only gotten worse. Now hurts to even walk. She endorses associated nausea and vomiting. Denying fevers. Workup in the ED showing no leukocytosis, electrolyte abnormalities, CT scan was obtained showing thick walled appendix up to 7 mm, small volume of ascites consistent with acute appendicitis. She was started on Rocephin and Flagyl, fluids. 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 She takes propranolol, rizatriptan daily for headaches. Additionally takes a baby aspirin daily. Surgical history significant for hysterectomy. Denies additional surgeries. Denies alcohol, tobacco, drug use. Denies allergies Hospital course: Patient was admitted for acute appendicitis. Started on IV antibiotics. She was made NPO. Brought to the operating room later that afternoon for laparoscopic appendectomy. The procedure went well, there were no intraop erative or immediately postoperative complications and the patient was transferred to the [facility] floor for further management. Diet was advanced. POD 1, patient doing well, denies abdominal pain. Did have some nausea with diet yesterday but overall tolerated well. She was able to ambulate, up to the bathroom, denies issues with urination, passing gas. Patient felt ready to be discharged. At the time of discharge patient's vital signs were in stable condition. Abdomen exam was soft and benign, incision site dressings are in place appear clean dry intact. Activity restrictions reinforced with the patient she will follow up in 1-2 weeks with the office Status at Discharge Functional status at discharge: independent ambulation Overall status at discharge: patient is progressing back to baseline Time Attestation Discharge Coordination Time (in mins): 30 Quality: Safe Use of Opioids Does Pt have an Active Cancer Diagnosis on the Problem List?: No Quality: Stroke Does the patient have a stroke diagnosis?: No Physical Exam Vital Signs: Vital Signs: Last Vital Signs Temp 98.4 F 05/20/25 03:46 Pulse 80 05/20/25 03:46 Resp 18 05/20/25 03:46 BP 103/67 05/20/25 03:46 Pulse Ox 98 05/20/25 03:46 O2 Del Method Room Air 05/20/25 03:46 O2 Flow Rate 4 05/19/25 15:02 BMI result Body Mass Index 23.0 Const: General: comfortable and no acute distress Orientation/consciousness: patient oriented x3 GI: Other: Incision sites dressings clean and dry, no significant bleeding or drainage noted Inspection: No distended Palpation (GI): Soft to palpation, nontender and no guarding Neuro: General: patient oriented x3 DS: Data Data Completed and Pending Pending studies at discharge: Pending at discharge 05/19/25 14:39 Surgical [PTH] Routine Labs on day of discharge: Preliminary micro results at discharge 05/18/25 22:30 Blood Culture - Preliminary Blood - Venous No growth after 24 hours. 05/18/25 22:29 Blood Culture - Preliminary Blood - Venous No growth after 24 hours. Discharge Plan Discharge Anticipated Discharge Date/Time: 05/20/25 09:00 Patient Disposition: Home, Self-Care Discharge Diagnosis: acute appendicitis, s/p laparoscopic appendectomy Referrals: Elton Walden MD [Physician, General Surgery] - 1 Week PhysicianFartun [Primary Care Provider, Medical] - 1 Week Discharge Medications: New docusate sodium [Colace] 100 mg capsule 100 mg PO BID PRN (Reason: constipation) Qty: 30 0RF oxycodone 5 mg tablet 5 mg PO Q4H PRN (Reason: pain (scale score 7-10)) Qty: 26 0RF Rx Instructions: Partial Fill upon patient request. Continued multivitamin Tablet 1 tab PO DAILY valacyclovir 500 mg tablet 500 mg PO DAILY ondansetron 8 mg tablet,disintegrating 8 mg PO Q6H PRN (Reason: Nausea And Vomiting) propranolol 120 mg capsule,extended release 24 hr 240 mg PO BEDTIME fluticasone propionate 50 mcg/actuation spray,suspension 1 spray intranasal DAILY PRN (Reason: Nasal Congestion) rizatriptan 5 mg tablet 5 mg PO DAILY PRN (Reason: Migraine Headache) aspirin 81 mg Tablet 81 mg PO DAILY Discharge Orders: Discharge Order (Routine); Ordered 05/20/25 Ordered By: Checo Guadalupe Diet: Advance to usual diet Activity on Discharge: No heavy lifting Stand Alone Forms: Patient Portal Discharge page Print Language: Korean Activity Restrictions/Additional Instructions: If the incision area is tender, you may apply an ice pack for short intervals (No more than 20 minutes on, followed by at least 20 minutes off). Do not apply heat. Do not use creams, lotions, or topical antibiotics. Ok to shower. Remove clear dressings 3 days following your procedure. You have steri strips (small white strips) covering your incision- these will fall off ~1 week. No heavy lifting (>10lbs) or strenuous activity! Take Tylenol Extra-strength 1-2 tabs every 6 hours for the first day, then as needed. Oxycodone every 6-8 hours as needed for pain. Colace 100 mg every day as needed for constipation. Follow up in office with Dr. Walden in 1 week. ([phone]) Call Your Doctor If: -Your temperature exceeds 101.5? F -You experience excessive pain or swelling -You have an unexpected reaction to medication -You have excessive bleeding -You experience continued vomiting/nausea -Your incision begins to separate -Your incision shows signs of infection such as increased redness, swelling, excessive pain, drainage (light blood or clear fluid is normal) or heat Care Plan Goals: Return to baseline health and resume normal activities following recovery period. Health Concerns: acute appendicitis Plan of Treatment: s/p laparoscopic appendectomy. Pain control. Follow up in the office in 1 week. Assessment: Doing well post op.
[2025-05-20 08:58] VITALS: BP 120/77; PULSE 58; RESP 18; TEMP 36.8; O2SAT 100
== END 2025-05-20 09:11 | disposition home or self-care (01) | DRG 399 ==
LOC: HO.ED 20:39 → HO.EDOVER 22:44 → HO.SSSA 05-19 11:46 → HO.S3 05-19 15:18
PROVIDERS: Physician Assistant; Admitting Provider Surgery; Emergency Provider Emergency Medicine; Visit Provider Surgery
PROC: 0DTJ4ZZ Resection of Appendix, Percutaneous Endoscopic Approach (ICD-10-PCS; CPT 44970; principal; 2025-05-19 12:30)
DX: K35.30 Acute appendicitis with localized peritonitis, without perforation or gangrene (principal); Z23 Encounter for immunization; Z86.73 Personal history of transient ischemic attack (TIA), and cerebral infarction without residual deficits; Z79.82 Long term (current) use of aspirin; Z79.899 Other long term (current) drug therapy
CPT/HCPCS: 36415; 74177; 80053; 80307; 81003; 81025; 83605; 83690; 83735; 84702; 85025; 85610; 85730; 87040; 88304; 90656; 99285; J0131; J0696; J1100; J1171; J1200; J1836; J1885; J2003; J2270; J2405; J2704; J2765; J3010; Q9967

== ENCOUNTER → 2025-05-18 20:25 | Outpatient (BNV) | payer MEDICARE, MEDICAID, SELFPAY | PROVIDERS: Emergency Provider Emergency Medicine; Visit Provider Radiology Diagnostic Radiology | DX: R18.8 Other ascites (principal) | CPT/HCPCS: 74177 ==

== ENCOUNTER → 2025-05-18 22:39 | Outpatient (BNV) | payer MEDICARE, MEDICAID, SELFPAY | PROVIDERS: Admitting Provider Surgery; Emergency Provider Emergency Medicine | DX: K35.30 Acute appendicitis with localized peritonitis, without perforation or gangrene (principal) | CPT/HCPCS: 44970; 99223 ==

== ENCOUNTER 2025-05-26 13:58 | Outpatient (AMB) | payer MEDICARE, MEDICAID, SELFPAY ==
--- NOTE | 2025-05-26 14:01 | MHC.OFFVIS ---
Vital Signs 05/26/25 14:08 Height 5 ft 7 in Weight 155 lb BMI 24.3 BP 115/62 Blood Pressure Location Rt brachial Position Sitting Pulse 68 Intake Visit Reasons: s/p appy Intake Note: Patient presents for post-op assessment status post laparoscopic appendectomy. Pt c/o; no complaints pertaining to surgery at this time. Checker Loader Required: No Accompanied by: Self / Same As Patient Allergies No Known Allergies Allergy (Verified 05/26/25 14:09) HPI HPI s/p appy: Details: She reports she is doing well. Denies any pain. Reports her diet is at baseline. She has good bowel function, no issues with urination. Denies any drainage or bleeding from incision sites. She has no concerns [facility] Medical History Stress-induced epilepsy Migraines CVA (cerebral vascular accident) Surgical History (Updated 05/26/25 @ 14:15 by Checo Guadalupe PA-C) History of laparoscopic appendectomy (~05/19/25) H/O: hysterectomy Social History Household Members: Children Housing: House Do you presently have visiting nurse or other home services: No Patient Tobacco Use Status: Never used Tobacco Second Hand Smoke Exposure: No service: No Physical Exam Vital Signs: Last Vital Signs Pulse 68 05/26/25 14:08 BP 115/62 05/26/25 14:08 BMI result Body Mass Index 24.3 Const General: comfortable and no acute distress Orientation/consciousness: patient oriented x3 GI Other: Incision sites well healed, no erythema, no fluid collections, nontender. Inspection: No distended Palpation (GI): Soft to palpation and nontender Neuro General: patient oriented x3 Assessment & Plan Assessment & Plan (1) History of laparoscopic appendectomy: Onset Date: ~05/19/25 Comment: Dr. Win STANLEY FACS Code(s): Z90.49 - Acquired absence of other specified parts of digestive tract Category: Medical Plan 44-year-old female s/p laparoscopic appendectomy on 05/19/[address] Walden returning to the office for follow up. Overall things have been going very well she is denying any pain, has no issues with diet or bowel function. She is ambulating at baseline without heavy lifting at this point. She denies any bleeding or concern with her incision sites. On exam her abdomen is soft and benign, incision sites appear to be healing well, there was no concern for infection at this time. We reviewed the pathology showing acute appendicitis. She is to continued no heavy lifting for about 2 more weeks, then can slowly advance back to baseline level of activity. She can follow up as needed with any concerns or questions in the future. Coding Level of Care Code Global (92156) Diagnoses History of laparoscopic appendectomy Z90.49
[2025-05-26 14:08] VITALS: BP 115/62; PULSE 68; BMI 24.3
--- OUTSIDE RECORDS SUMMARY | 2025-05-26 18:09 | XMS_ITS | Clinical Summary ---
Author Organization [facility] Address [address] [place] [address] Phone Care Team Providers [employer] Name Role Phone Anisha Crowell MD Primary Care Provider [phone] Allergies No known active allergies Medications acetaminophen [...] EST - 05/17/2025 10:01 PM EST Emergency [facility] Emergency [address] [place] [phone] Luis Antonio Jacobo MD Touriel, Ross, MD Nausea and vomiting, unspecified vomiting type (Primary Dx) Discharge Disposition: Home or Self Care 03/01/2025 5:31 PM EDT - 03/01/2025 6:02 PM EDT Emergency [facility] Emergency [address] [place] [phone] Jeff Jorgensen MD Acute chalazion of right eye (Primary Dx) Discharge Disposition: Home or Self Care from Last 3 Months Surgical History Surgery Date Site/Laterality Comments HYSTERECTOMY Medical History Medical History Date Comments Stroke (CMS/[facility] V24, CMS/[facility] V28) Social History Tobacco Use Types Packs/Day [...] Procedure Name Priority Date/Time Associated Diagnosis Comments ECG ANNOTATED 05/19/2025 DRUG ABUSE SCREEN 8A PANEL, URINE STAT [...] 1 VIEW STAT 05/17/2025 3:57 PM EST [id number], RSV, FLU A AND B QUALITATIVE RT-PCR, [...] EST from Last 3 Months Results * ECG-Annotated (05/19/2025) us Provider Onbase MD ECG ORDERABLES Final Result * (ABNORMAL) Urinalysis with reflex microscopic and culture (05/17/2025 7:43 PM EST) Specific Snyder Urine >1.045(H) 1.003 - 1.030 LAB URINALYSIS - AUTOMATED METHOD 05/17/2025 9:06 PM [facility] pH, Urine 7.5 5.0 - 8.0 pH LAB URINALYSIS - AUTOMATED METHOD 05/17/2025 9:06 PM [facility] Leukocytes, Urine Negative Negative LAB URINALYSIS - AUTOMATED METHOD 05/17/2025 9:06 PM [facility] Nitrite, Urine Negative Negative LAB URINALYSIS - AUTOMATED METHOD 05/17/2025 9:06 PM [facility] Protein, Urine Trace <=Trace mg/dL LAB URINALYSIS - AUTOMATED METHOD 05/17/2025 9:06 PM [facility] Glucose, Urine Negative Negative mg/dL LAB URINALYSIS - AUTOMATED METHOD 05/17/2025 9:06 PM [facility] Ketones, Urine Negative Negative mg/dL LAB URINALYSIS - AUTOMATED METHOD 05/17/2025 9:06 PM [facility] Urobilinogen , Urine 0.2 0.2 - 1.0 mg/dL LAB URINALYSIS - AUTOMATED METHOD 05/17/2025 9:06 PM [facility] Bilirubin, Urine Negative Negative LAB URINALYSIS - AUTOMATED METHOD 05/17/2025 9:06 PM [facility] Blood, Urine Negative Negative LAB URINALYSIS - AUTOMATED METHOD 05/17/2025 9:06 PM [facility] Urine Urine specimen obtained by clean catch procedure / Unknown Non-blood Collection / Unknown 05/17/2025 7:43 PM EST 05/17/2025 8:08 PM EST us Benny Moreau MD LAB URINE ORDERABLES Final Resul t Performing Organization Address [facility]/ZIP Co de Phone Number [facility] [address] [place] [address], [place] [phone] * Darby urine culture tube (05/17/2025 7:43 PM EST) Extra Tube Hold for add-ons. 05/17/2025 10:04 PM EST [facility] Comment:Auto resulted. Urine Urine specimen obtained by clean catch procedure / Unknown Non-blood Collection / Unknown 05/17/2025 7:43 PM EST 05/17/2025 8:08 PM EST us Benny Moreau MD LAB URINE ORDERABLES Final Resul t [facility] [address] [place] [address], * (ABNORMAL) Drug abuse screen 8a panel, urine (05/17/2025 7:43 PM EST) Amphetamine Screen, Ur Negative Negative 05/17/2025 8:37 PM EST [facility] Comment:Certain OTC medicati ons containing ephedrine, phenylephrine, pseudoephedrine and phenylpropanolamine can cause false positive results. Barbiturate Screen, Ur Negative Negative 05/17/2025 8:37 PM EST [facility] Benzodiazepine Screen, Ur Negative Negative 05/17/2025 8:37 PM EST [facility] Cocaine Screen, Ur Negative Negative 2024 8:37 PM [facility] Opiate Screen, Ur Positive(A ) Negative 05/17/2025 8:37 PM [facility] Cannabinoid (THC) Screen, Ur Negative Negative 05/17/2025 8:37 PM EST [facility] Comment:Specimens from patie nts taking pantoprazole sodium (Protonix) have been shown to produce false positive results. Oxycodone Screen, Ur Negative Negative 12/2024 8:37 PM [facility] Fentanyl, Ur Negative Negative 05/17/2025 8:37 PM [facility] Urine Urine specimen obtained by clean catch procedure / Unknown Non-blood Collection / Unknown 05/17/2025 7:43 PM EST 05/17/2025 8:08 PM EST [facility] - 05/17/2025 8:37 PM EST Assay [...] MD LAB URINE ORDERABLES Final Resul t [facility] [address] [place] [address], [place] [phone] * CT Abdomen Pelvis w Contrast (05/17/2025 [...] MD on 05/17/2025 17:28:14 Benny Moreau MD IMG CT PROCEDURES Final Result * 12-Lead ECG (05/17/2025 4:22 PM EST) Ventricular Rate ECG 80 BPM GEMUSE Atrial Rate 80 BPM GEMUSE P-R Interval 168 ms GEMUSE QRS Duration 78 ms GEMUSE Q-T Interval 426 ms GEMUSE QTc 491 ms GEMUSE P Wave [place] 84 degrees GEMUSE R [place] 51 degrees GEMUSE T [place] 55 degrees GEMUSE ECG Interpretation Normal sinus [...] Signed Date: 05/17/2025 16:18 ET Workstation ID: [id number] Transcribed By: Self Edit Transcribed Date: 05/17/2025 [...] Signed Date: 05/17/2025 16:18 ET Workstation ID: [id number] Transcribed By: Self Edit Transcribed Date: 05/17/2025 16:17 ET us Benny Moreau MD IMG XR PROCEDURES Final Result * [id number], RSV, Influenza A and B qualitative RT-PCR (05/17/2025 3:38 PM EST) Influenza A PCR Not Detected Not Detected [...] Final Result [facility] [address] [place] [address], [place] [phone] * Troponin I High Sensitivity (05/17/2025 3:26 PM EST) [facility] High Sensitivity Troponin I <3 <=34 ng/L 05/17/2025 4:12 PM EST [facility] Blood Venous blood specimen / Unknown Venipuncture / Unknown 05/17/2025 3:26 PM EST 05/17/2025 3:41 PM EST us Benny Moreau MD LAB BLOOD ORDERABLES Final Resul t Performing Organization Address City/[facility]/ZIP Co de Phone Number [facility] [address] [place] [address], [place] [phone] * (ABNORMAL) Beta hydroxybutyrate (05/17/2025 3:26 PM EST) [facility] Beta-Hydroxybu tyrate 4.2(H) 0.2 - 2.8 mg/dL 05/17/2025 5:07 PM EST [facility] Blood Venous blood specimen / Unknown Venipuncture / Unknown 05/17/2025 3:26 PM EST 05/17/2025 3:41 PM EST us Benny Moreau MD LAB BLOOD ORDERABLES Final Resul t Performing Organization Address [facility] Co de Phone Number [facility] [address] [place] [address], [place] [phone] * (ABNORMAL) CBC auto differential (05/17/2025 3:26 PM EST) [facility] WBC 7.7 4.8 - 10.8 K/mcL LAB HEMETOLOGY METHOD 05/17/2025 3:51 PM EST [facility] RBC 4.10 3.80 - 4.80 M/mcL LAB HEMETOLOGY METHOD 05/17/2025 3:51 PM EST [facility] Hemoglobin 12.7 11.5 - 16.0 g/dL LAB HEMETOLOGY METHOD 05/17/2025 3:51 PM EST [facility] Hematocrit 37.8 35.0 - 47.0 % LAB HEMETOLOGY METHOD 05/17/2025 3:51 PM [facility] MCV 91.7 79.0 - 98.0 FL LAB HEMETOLOGY METHOD 05/17/2025 3:51 PM [facility] MCH 30.8 27.0 - 32.0 pcg LAB HEMETOLOGY METHOD 05/17/2025 3:51 PM [facility] MCHC 33.6 32.0 - 37.0 g/dL LAB HEMETOLOGY METHOD 05/17/2025 3:51 PM [facility] RDW 11.8 11.0 - 15.0 % LAB HEMETOLOGY METHOD 05/17/2025 3:51 PM [facility] Platelets 251 130 - 400 K/mcL LAB HEMETOLOGY METHOD 05/17/2025 3:51 PM [facility] MPV 11.7(H) 7.0 - 11.0 FL LAB HEMETOLOGY METHOD 05/17/2025 3:51 PM [facility] NRBC 0.0 <1.0 % LAB HEMETOLOGY METHOD 05/17/2025 3:51 PM [facility] NRBC Absolute 0.00 <0.10 K/mcL LAB HEMETOLOGY METHOD 05/17/2025 3:51 PM [facility] Neutrophils Relative 79.5 % LAB HEMETOLOGY METHOD 05/17/2025 3:51 PM [facility] Lymphocytes Relative 17.4 % LAB HEMETOLOGY METHOD 05/17/2025 3:51 PM [facility] Monocytes Relative 2.6 % LAB HEMETOLOGY METHOD 05/17/2025 3:51 PM [facility] Eosinophils Relative 0.1 % LAB HEMETOLOGY METHOD 05/17/2025 3:51 PM [facility] Basophils Relative 0.1 % LAB HEMETOLOGY METHOD 05/17/2025 3:51 PM EST [facility] Immature Granulocytes Relative 0.3 % LAB HEMETOLOGY METHOD 05/17/2025 3:51 PM [facility] Neutrophils Absolute 6.14 1.50 - 7.00 K/mcL LAB HEMETOLOGY METHOD 05/17/2025 3:51 PM EST [facility] Lymphocytes Absolute 1.34 1.00 - 5.00 K/mcL LAB HEMETOLOGY METHOD 05/17/2025 3:51 PM EST [facility] Monocytes Absolute 0.20 0.20 - 1.00 K/mcL LAB HEMETOLOGY METHOD 05/17/2025 3:51 PM [facility] Eosinophils Absolute 0.01 0.00 - 0.50 K/mcL LAB HEMETOLOGY METHOD 05/17/2025 3:51 PM EST [facility] Basophils Absolute 0.01 0.00 - 0.20 K/mcL LAB HEMETOLOGY METHOD 05/17/2025 3:51 PM [facility] Immature Granulocytes Absolute 0.02 0.00 - 0.03 K/mcL LAB HEMETOLOGY METHOD 05/17/2025 3:51 PM [facility] Blood Venous blood specimen / Unknown Venipuncture / Unknown 05/17/2025 3:26 PM EST 05/17/2025 3:41 PM EST us Benny Moreau MD LAB BLOOD ORDERABLES Final Resul t [facility] [address] [place] [address], * (ABNORMAL) APTT (05/17/2025 3:26 PM EST) aPTT 23.1(L) 24.1 - 39.3 sec LAB COAGULATION METHOD 05/17/2025 4:17 PM EST [facility] Blood Venous blood specimen / Unknown Venipuncture / Unknown 05/17/2025 3:26 PM EST 05/17/2025 3:41 PM EST us Benny Moreau MD LAB BLOOD ORDERABLES Final Resul t Performing Organization Address City/[facility]/ZIP Co de Phone Number [facility] [address] [place] [address], [place] [phone] * Protime-INR (05/17/2025 3:26 PM EST) Protime [...] ORDERABLES Final Resul t Performing Organization Address [facility] Co de Phone Number [facility] [address] [place] [address], [place] [phone] * hCG Qualitative (05/17/2025 3:26 PM EST) hCG Qual Negative Negative 05/17/2025 3:59 PM EST [facility] Blood Venous blood specimen / Unknown Venipuncture / Unknown 05/17/2025 3:26 PM EST 05/17/2025 3:41 PM EST us Benny Moreau MD LAB BLOOD ORDERABLES Final Resul t Performing Organization Address City/[facility]/ZIP Co de Phone Number [facility] [address] [place] [address], [place] [phone] * Magnesium (05/17/2025 3:26 PM EST) Pathologist [facility] Magnesium 1.9 1.9 - 2.6 mg/dL 05/17/2025 4:13 PM EST [facility] Blood Venous blood specimen / Unknown Venipuncture / Unknown 05/17/2025 3:26 PM EST 05/17/2025 3:41 PM EST us Benny Moreau MD LAB BLOOD ORDERABLES Final Resul t Performing Organization Address City/[facility]/ZIP Co de Phone Number [facility] [address] [place] [address], [place] [phone] * Lipase (05/17/2025 3:26 PM EST) Pathologist [facility] Lipase 25 12 - 53 unit/L 05/17/2025 4:13 PM EST [facility] Blood Venous blood specimen / Unknown Venipuncture / Unknown 05/17/2025 3:26 PM EST 05/17/2025 3:41 PM EST us Benny Moreau MD LAB BLOOD ORDERABLES Final Resul t Performing Organization Address [facility]/ZIP Co de Phone Number [facility] [address] [place] [address], [place] [phone] * (ABNORMAL) Comprehensive Metabolic Panel (CMP) (05/17/2025 3:26 PM EST) Pathologist [facility] Sodium 137 133 - 145 mmol/L 05/17/2025 4:13 PM EST [facility] Potassium 4.0 3.5 - 5.5 mmol/L 05/17/2025 4:13 PM EST [facility] Chloride 104 96 - 110 mmol/L 05/17/2025 4:13 PM EST [facility] CO2 22 21 - 32 mmol/L 05/17/2025 4:13 PM EST [facility] Anion Gap 11 3 - 11 05/17/2025 4:13 PM [facility] Glucose 150(H) 70 - 100 mg/dL 05/17/2025 4:13 PM [facility] BUN 12 5 - 25 mg/dL 05/17/2025 4:13 PM [facility] Creatinine 0.67 0.50 - 1.10 mg/dL 05/17/2025 4:13 PM [facility] eGFR 112 >=60 mL/min/1. 73m2 05/17/2025 4:13 PM [facility] Comment:Calculation based on the Chronic Kidney Disease Epidemiology Collaboration (CKD-EPI) equation refit without adjustment for race. BUN/Creatinine Ratio 17.9 05/17/2025 4:13 PM [facility] Calcium 9.5 8.5 - 10.5 mg/dL 05/17/2025 4:13 PM [facility] AST (SGOT) 18 10 - 42 unit/L 05/17/2025 4:13 PM [facility] ALT (SGPT) 15 10 - 60 unit/L 05/17/2025 4:13 PM [facility] Alkaline Phosphatase 58 42 - 121 unit/L 05/17/2025 4:13 PM [facility] Total Protein 6.8 6.0 - 8.0 g/dL 05/17/2025 4:13 PM [facility] Albumin 4.4 3.2 - 5.0 g/dL 05/17/2025 4:13 PM [facility] Total Bilirubin 0.5 0.0 - 1.4 mg/dL 05/17/2025 4:13 PM [facility] Blood Venous blood specimen / Unknown Venipuncture / Unknown 05/17/2025 3:26 PM EST 05/17/2025 3:41 PM EST us Benny Moreau MD LAB BLOOD ORDERABLES Final Resul t Performing Organization Address City/[facility]/ZIP Co de Phone Number [facility] [address] [place] [address], [place] [phone] * (ABNORMAL) POCT Glucose, blood (05/17/2025 2:18 PM EST) [facility] Glucose POCT 146(H) 70 - 100 mg/dL 05/17/2025 2:19 PM EST [facility] Blood Capillary blood specimen / Unknown 05/17/2025 2:18 PM EST 05/17/2025 2:20 PM EST us Benny Moreau MD LAB POINT OF CARE TE ST DOCKED DEVICE UNSOLICITED RESULTS Final Result Performing Organization Address [facility] Co de Phone Number [facility] [address] [place] [address], [place] [phone] from Last 3 Months Insurance MEDICARE MEDICAID - [place] Care Teams Grinder [employer] Relationship Specialty Start Date End Date Anisha Crowell MD [address] [address] PCP - General Internal Medicine 03/01/25
== END 2025-05-26 14:11 | disposition home or self-care (01) ==
LOC: HO.HGS 13:59
PROVIDERS: PCP Internal Medicine
DX: Z90.49 Acquired absence of other specified parts of digestive tract (principal)
CPT/HCPCS: 99024

== ENCOUNTER → 2025-05-26 13:58 | Outpatient (BNVA) | payer MEDICARE, MEDICAID, SELFPAY | PROVIDERS: PCP Internal Medicine | DX: Z98.890 Other specified postprocedural states (principal); Z90.49 Acquired absence of other specified parts of digestive tract | CPT/HCPCS: 99212 ==